=== PATIENT | male | born 1940 | race Caucasian/White ===

== ENCOUNTER 2017-04-26 08:15 | Outpatient (CLI) | payer MEDICARE, SELFPAY ==
[2017-04-26 08:41] VITALS: BMI 27.0
[2017-04-26 08:53] LABS: Microscopic, Urine URINE MICROSCOPIC (MICROSCOPIC)
[2017-04-26 08:56] LABS: Appearance,Urine SL CLOUDY (Clear); Bilirubin,Urine Negative (Negative); Blood, Urine TRACE-I (Negative); Color,Urine YELLOW (Yellow); Glucose,Urine (UA) Negative (Negative); Ketones,Urine Negative (Negative); Leukocyte Esterase,Urine 1+ (Negative); Nitrate,Urine POSITIVE (Negative); Protein,Urine 1+ (Negative); Specific Gravity, Urine <= 1.005 (1.005-1.030); Urobilinogen,Urine 0.2 EU/dl (0.2)
[2017-04-26 08:59] LABS: Basophils % 0.3 % (0.1-2.0); Eosinophils # 0.2 K/mm3 (0.0-0.4); Eosinophils % 3.5 % (0.1-12.0); Hematocrit 38.3 % (42.0-52.0); Hemoglobin 12.3 g/dL (14.1-18.0); Lymphocytes # 1.9 K/mm3 (0.7-4.5); Lymphocytes % 26.9 K/mm3 (10-50); Mean Corpuscular HGB Conc 32.1 g/dL (31.8-35.4); Mean Corpuscular Hemoglobin 29.3 pg (27.0-31.2); Mean Corpuscular Volume 91.3 fl (80-94); Monocytes # 0.4 K/mm3 (0.1-1.0); Monocytes % 6.2 % (1.7-9.3); Neutrophils # 4.4 K/mm3 (1.8-7.8); Neutrophils % 63.1 % (37.0-80.0); PH,Urine >= 9.0 (5.0-8.5); Platelet Count 266 K/mm3 (142-424); Red Blood Count 4.19 M/mm3 (4.60-6.20); Red Cell Distribution Width 16.5 % (11.5-17.5)
[2017-04-26 09:08] LABS: Bacteria,Urine 4+ /lpf; Triple Phosphate Crystal,Urine Trace /lpf; WBC,Urine 50-100 #/hpf (0-3)
[2017-04-26 09:40] LABS: Alanine Aminotransferase 18 U/L (12-78); Albumin Level 3.3 gm/dL (3.4-5.0); Albumin/Globulin Ratio 0.8 (1.1-1.8); Alkaline Phosphatase 96 U/L (46-116); Anion Gap 12.1 mEq/L (5-15); Aspartate Amino Transferase 18 U/L (15-37); Bilirubin,Total 0.6 mg/dL (0.2-1.0); Blood Urea Nitrogen 21 mg/dL (7-18); Calcium 8.7 mg/dL (8.5-10.1); Carbon Dioxide 23 mmol/L (21.0-32.0); Chloride 108 mmol/L (98-107); Creatinine Clearance Estimated 57 mg/ml (0-300); Creatinine,Serum 1.31 mg/dL (0.70-1.30); Estimated Glomerular Filt Rate 53 ml/min (>60); GFR (African American) > 60 ML/MIN (>60); Globulin 4.2 gm/dl (1.3-3.2); Glucose 115 mg/dL (74-106); Potassium 3.1 mmoL/L (3.5-5.1); Sodium 140 mmol/L (136-145); Total Protein,Serum 7.5 gm/dL (6.4-8.2)
== END 2017-04-26 10:30 | disposition home or self-care (01) ==
LOC: INF 13:04
PROVIDERS: Family Provider Family Medicine; PCP Family Medicine; Visit Provider Internal Medicine
DX: C18.9 Malignant neoplasm of colon, unspecified (principal); R82.90 Unspecified abnormal findings in urine
CPT/HCPCS: 80053; 81001; 85025; 87086; 87088; 87186; J1642

== ENCOUNTER → 2017-05-01 12:08 | Outpatient (CLI) | payer MEDICARE, SELFPAY ==
--- NOTE | 2017-05-01 12:21 | CT_ITS ---
CT chest w con HISTORY: Follow-up pulmonary metastatic disease from colon cancer ITS.REASON: COLON CA ORDERING PHYSICIAN: Jason Mccain MD PATIENT AGE: 76 years TECHNIQUE: Axial images obtained following the intravenous administration of 75 mL's of Isovue-370. Sagittal and Coronal reformatted images are also generated and reviewed. COMPARISON: 02/10/2017 FINDINGS: No mediastinal or hilar mass apparent. There are some small pretracheal lymph nodes measuring up to 11 mm unchanged There are centrilobular emphysematous changes with scattered areas of pulmonary scarring. Bilateral pulmonary nodules are once again noted. The nodules are somewhat smaller on today's study when compared to the previous exam. For example, the largest nodule in the right lower lobe was approximately 14 x 9 mm now measuring 10 x 7 mm. The nodules are also somewhat less well-defined. The largest confluent nodule in the left lower lobe was 2.3 x 1.7 cm now 1.5 x 0.9 cm. No new nodules apparent. There are trace bilateral effusions are slightly smaller when compared to the previous exam. IMPRESSION: 1. Overall decrease in size of the multiple bilateral pulmonary nodules indicating improvement in metastatic disease 2. Centrilobular emphysematous changes with scattered pulmonary fibrosis and trace bilateral pleural effusions
--- NOTE | 2017-05-01 12:21 | CT_ITS ---
CT abdomen pelvis w con CLINICAL INDICATION: Follow-up metastatic colon cancer ITS.REASON: COLON CA ORDERING PHYSICIAN: Jason Mccain MD PATIENT AGE: 76 years COMPARISON: 02/10/2017 TECHNIQUE: Axial images obtained with sagittal and coronal reformats. PROCEDURE: Oral Contrast: Redicat IV Contrast: 75 mL's of Isovue-370. FINDINGS: Hypodense mass is present in the left lobe of the liver measuring 3.5 x 3.1 x 3.7 cm previously 4.2 x 3.8 x 4.4 cm consistent with improvement in hepatic metastasis. There is a mass in the inferior aspect of the right lobe of the liver measuring 2 x 2 cm previously 2.5 x 2.5 cm. There are small hepatic cyst. No new hepatic lesions evident. The spleen and right adrenal gland are unremarkable. There is a 13 mm nodule involving the left adrenal gland not significantly changed. There are bilateral renal cysts. The pancreas has an unremarkable appearance. 14 mm nodular density is present in the intra-abdominal wall on superior aspect of the abdominal wall incision. There remains moderate thickening of the abdominal wall inferior to the umbilicus centrally as seen on the previous exam. Right lower quadrant ileal loop again noted. No evidence of hydronephrosis or hydroureter. There is a left lower quadrant colostomy. There is a small loop of transverse colon extending into the ostomy site. No evidence of intestinal structure in. There remains a fluid collection in the lower pelvis in the presacral region in the resected rectosigmoid bed residual soft tissue thickening in the rectovesical region similar to the previous exam. Dilated loop of small bowel is present anterior to this region as previously described not significantly changed no definite bowel obstruction proximal to this region No acute bony anomalies. No destructive bony lesions. IMPRESSION: 1. Slight decrease in size in hepatic masses indicating improvement in metastatic disease of the liver 2. Overall no significant change in the nodular soft tissue density in the abdominal wall both superior and inferior to the umbilical region along the abdominal wall incision. 3. Right lower quadrant ileal loop and left lower quadrant colostomy once again noted. 4. Persistent complex soft tissue density in the pelvis in the presacral region and rectosigmoid bed. Cannot exclude residual neoplasm. Postradiation/postsurgical changes once again noted. The fluid appearing component of this complex density is slightly larger at 3.8 x 2.3 cm previously 2 x 1 cm 5. Persistent dilated small bowel loop in the pelvic region anterior to the complex fluid and soft tissue density
== END ==
PROVIDERS: Family Provider Family Medicine; PCP Family Medicine; Visit Provider Internal Medicine
DX: C18.9 Malignant neoplasm of colon, unspecified (principal)
CPT/HCPCS: 71260; 74177; Q9967

== ENCOUNTER 2017-05-08 08:35 | Outpatient (CLI) | payer MEDICARE, SELFPAY ==
[2017-05-08] VITALS (11 sets, daily range): BP systolic 128–151; BP diastolic 71–78; PULSE 68–81; RESP 20; TEMP 36.6; O2SAT 96–97; BMI 27.1
[2017-05-08 08:48] LABS: Microscopic, Urine URINE MICROSCOPIC (MICROSCOPIC)
[2017-05-08 08:50] LABS: Appearance,Urine Turbid (Clear); Color,Urine Yellow (Yellow)
[2017-05-08 08:51] LABS: Bilirubin,Urine Negative (Negative); Blood, Urine 1+ (Negative); Glucose,Urine (UA) Negative (Negative); Ketones,Urine Negative (Negative); Leukocyte Esterase,Urine 2+ (Negative); Nitrate,Urine Positive (Negative); PH,Urine 8.5 (5.0-8.5); Protein,Urine Trace (Negative); Urobilinogen,Urine 0.2 EU/dl (0.2)
[2017-05-08 08:57] LABS: Bacteria,Urine 4+ /lpf; Squamous Epithelial Cell,Urine Occasional #/hpf (0-5); WBC,Urine 20-50 #/hpf (0-3)
== END 2017-05-08 14:10 | disposition home or self-care (01) ==
LOC: INF 11:59
PROVIDERS: Family Provider Family Medicine; PCP Family Medicine; Visit Provider Internal Medicine
DX: C18.9 Malignant neoplasm of colon, unspecified (principal); Z51.11 Encounter for antineoplastic chemotherapy; R82.90 Unspecified abnormal findings in urine
CPT/HCPCS: 81001; 87086; 87088; 87186; 96375; 96413; 96415; 96417; J9035; J9263; Q0166

== ENCOUNTER 2017-05-24 08:03 | Outpatient (CLI) | payer MEDICARE, SELFPAY ==
[2017-05-24] VITALS (21 sets, daily range): BP systolic 125–148; BP diastolic 67–86; PULSE 59–79; RESP 16–18; TEMP 36.2; O2SAT 97; BMI 27.3
[2017-05-24 08:31] LABS: Microscopic, Urine URINE MICROSCOPIC (MICROSCOPIC)
[2017-05-24 08:34] LABS: Basophils % 0.4 % (0.1-2.0); Eosinophils # 0.2 K/mm3 (0.0-0.4); Eosinophils % 2.7 % (0.1-12.0); Hematocrit 37.4 % (42.0-52.0); Hemoglobin 11.9 g/dL (14.1-18.0); Lymphocytes # 1.7 K/mm3 (0.7-4.5); Lymphocytes % 26.1 K/mm3 (10-50); Mean Corpuscular HGB Conc 31.8 g/dL (31.8-35.4); Mean Corpuscular Volume 91.2 fl (80-94); Monocytes # 0.4 K/mm3 (0.1-1.0); Monocytes % 5.5 % (1.7-9.3); Neutrophils # 4.2 K/mm3 (1.8-7.8); Neutrophils % 65.2 % (37.0-80.0); Platelet Count 247 K/mm3 (142-424); Red Cell Distribution Width 17.7 % (11.5-17.5); White Blood Count 6.4 K/mm3 (4.8-10.8)
[2017-05-24 08:34] LABS: Appearance,Urine CLOUDY (Clear); Bilirubin,Urine Negative (Negative); Blood, Urine 1+ (Negative); Color,Urine YELLOW (Yellow); Glucose,Urine (UA) Negative (Negative); Ketones,Urine Negative (Negative); Leukocyte Esterase,Urine 2+ (Negative); Nitrate,Urine POSITIVE (Negative); PH,Urine 8.5 (5.0-8.5); Protein,Urine 2+ (Negative); Specific Gravity, Urine <= 1.005 (1.005-1.030); Urobilinogen,Urine 0.2 EU/dl (0.2)
[2017-05-24 08:48] LABS: Alanine Aminotransferase 21 U/L (12-78); Albumin Level 3.1 gm/dL (3.4-5.0); Albumin/Globulin Ratio 0.8 (1.1-1.8); Alkaline Phosphatase 85 U/L (46-116); Anion Gap 14.2 mEq/L (5-15); Aspartate Amino Transferase 15 U/L (15-37); Bilirubin,Total 0.7 mg/dL (0.2-1.0); Blood Urea Nitrogen 20 mg/dL (7-18); Calcium 8.5 mg/dL (8.5-10.1); Carbon Dioxide 22 mmol/L (21.0-32.0); Chloride 111 mmol/L (98-107); Creatinine Clearance Estimated 64 mL/min (0-300); Creatinine,Serum 1.15 mg/dL (0.70-1.30); Estimated Glomerular Filt Rate 62 ml/min (>60); GFR (African American) 75 ML/MIN (>60); Glucose 116 mg/dL (74-106); Potassium 3.2 mmoL/L (3.5-5.1); Sodium 144 mmol/L (136-145); Total Protein,Serum 7.1 gm/dL (6.4-8.2)
[2017-05-24 08:51] LABS: Bacteria,Urine 4+ /lpf; Triple Phosphate Crystal,Urine Trace /lpf; WBC,Urine TNTC #/hpf (0-3)
== END 2017-05-24 15:00 | disposition home or self-care (01) ==
LOC: INF 08:07
PROVIDERS: Family Provider Family Medicine; PCP Family Medicine; Visit Provider Internal Medicine
DX: C18.9 Malignant neoplasm of colon, unspecified (principal); Z51.11 Encounter for antineoplastic chemotherapy; R82.90 Unspecified abnormal findings in urine
CPT/HCPCS: 80053; 81001; 85025; 87086; 87088; 87186; 96413; 96415; 96417; J9035; J9263; Q0166

== ENCOUNTER 2017-06-07 10:56 | Outpatient (CLI) | payer MEDICARE, SELFPAY ==
[2017-06-07 11:01] VITALS: BMI 27.1
[2017-06-07 11:34] LABS: Microscopic, Urine URINE MICROSCOPIC (MICROSCOPIC)
[2017-06-07 11:39] LABS: Appearance,Urine CLOUDY (Clear); Basophils % 0.6 % (0.1-2.0); Bilirubin,Urine Negative (Negative); Blood, Urine TRACE-I (Negative); Color,Urine YELLOW (Yellow); Eosinophils # 0.2 K/mm3 (0.0-0.4); Eosinophils % 2.9 % (0.1-12.0); Glucose,Urine (UA) Negative (Negative); Hematocrit 37.6 % (42.0-52.0); Ketones,Urine Negative (Negative); Leukocyte Esterase,Urine 2+ (Negative); Lymphocytes # 1.6 K/mm3 (0.7-4.5); Lymphocytes % 25.1 K/mm3 (10-50); Mean Corpuscular Hemoglobin 29.8 pg (27.0-31.2); Mean Corpuscular Volume 93.1 fl (80-94); Mean Platelet Volume 8.2 fl (7.4-10.4); Monocytes # 0.5 K/mm3 (0.1-1.0); Monocytes % 8.2 % (1.7-9.3); Neutrophils # 4.1 K/mm3 (1.8-7.8); Neutrophils % 63.2 % (37.0-80.0); Nitrate,Urine POSITIVE (Negative); Platelet Count 262 K/mm3 (142-424); Protein,Urine 2+ (Negative); Red Blood Count 4.03 M/mm3 (4.60-6.20); Red Cell Distribution Width 17.3 % (11.5-17.5); Specific Gravity, Urine <= 1.005 (1.005-1.030); Urobilinogen,Urine 0.2 EU/dl (0.2); White Blood Count 6.5 K/mm3 (4.8-10.8)
[2017-06-07 11:48] LABS: Alanine Aminotransferase 21 U/L (12-78); Albumin Level 3.1 gm/dL (3.4-5.0); Albumin/Globulin Ratio 0.7 (1.1-1.8); Alkaline Phosphatase 100 U/L (46-116); Anion Gap 12.6 mEq/L (5-15); Aspartate Amino Transferase 11 U/L (15-37); Bilirubin,Total 0.4 mg/dL (0.2-1.0); Blood Urea Nitrogen 21 mg/dL (7-18); Calcium 8.7 mg/dL (8.5-10.1); Carbon Dioxide 25 mmol/L (21.0-32.0); Chloride 107 mmol/L (98-107); Creatinine Clearance Estimated 60 mL/min (0-300); Creatinine,Serum 1.28 mg/dL (0.70-1.30); Estimated Glomerular Filt Rate 55 ml/min (>60); GFR (African American) 66 ML/MIN (>60); Globulin 4.6 gm/dl (1.3-3.2); Glucose 125 mg/dL (74-106); Potassium 3.6 mmoL/L (3.5-5.1); Sodium 141 mmol/L (136-145); Total Protein,Serum 7.7 gm/dL (6.4-8.2)
[2017-06-07 11:55] LABS: PH,Urine >= 9.0 (5.0-8.5)
[2017-06-07 12:39] LABS: Amorphous Sediment,Urine Trace /lpf; Bacteria,Urine 3+ /lpf; Triple Phosphate Crystal,Urine 1+ /lpf
== END 2017-06-07 11:25 | disposition home or self-care (01) ==
LOC: INF 10:58
PROVIDERS: Visit Provider Internal Medicine
DX: C18.9 Malignant neoplasm of colon, unspecified (principal); R82.90 Unspecified abnormal findings in urine
CPT/HCPCS: 80053; 81001; 85025; 87086; 87088; 87186; J1642

== ENCOUNTER 2017-06-09 08:30 | Outpatient (CLI) | payer MEDICARE, SELFPAY ==
[2017-06-09] VITALS (9 sets, daily range): BP systolic 122–144; BP diastolic 67–78; PULSE 66–80; RESP 18–20; TEMP 36.4–36.9; O2SAT 96–98
--- NOTE | 2017-06-09 17:22 | PC.NURSE ---
WAS NOT ABLE TO COMPLETE THE DISCHARGE INSTRUCTIONS PAGE; ATTEMPTED X3 TO CHART THE PATIENT WAS DISCHARGED AT 1310 ; AMBULATED WITH IN THE CAR; NO SCRIPTS GIVEN; PT SENT HOME
== END 2017-06-09 13:10 | disposition home or self-care (01) ==
LOC: INF 08:52
PROVIDERS: Family Provider Family Medicine; Visit Provider Internal Medicine
DX: C18.9 Malignant neoplasm of colon, unspecified (principal); Z51.11 Encounter for antineoplastic chemotherapy
CPT/HCPCS: 96413; 96415; 96417; J9035; J9263; Q0166

== ENCOUNTER → 2017-06-16 09:54 | Outpatient (CLI) | payer MEDICARE, SELFPAY ==
[2017-06-16 09:59] LABS: Microscopic, Urine URINE MICROSCOPIC (MICROSCOPIC)
[2017-06-16 10:08] LABS: Appearance,Urine SL CLOUDY (Clear); Bilirubin,Urine Negative (Negative); Blood, Urine TRACE-I (Negative); Color,Urine YELLOW (Yellow); Glucose,Urine (UA) Negative (Negative); Ketones,Urine Negative (Negative); Leukocyte Esterase,Urine 1+ (Negative); Nitrate,Urine POSITIVE (Negative); PH,Urine 8.5 (5.0-8.5); Protein,Urine 1+ (Negative); Urobilinogen,Urine 0.2 EU/dl (0.2)
[2017-06-16 10:35] LABS: Amorphous Sediment,Urine 1+ /lpf; Bacteria,Urine 4+ /lpf; WBC,Urine 20-50 #/hpf (0-3)
[2017-06-16 10:36] LABS: RBC,Urine Occasional #/hpf (0-3); Triple Phosphate Crystal,Urine 1+ /lpf
== END ==
PROVIDERS: Visit Provider Internal Medicine
DX: C18.9 Malignant neoplasm of colon, unspecified (principal); R82.90 Unspecified abnormal findings in urine
CPT/HCPCS: 81001; 87086; 87088; 87186

== ENCOUNTER 2017-06-22 10:30 | Outpatient (CLI) | payer MEDICARE, SELFPAY ==
[2017-06-22 10:30] VITALS: BP 122/66; PULSE 68; RESP 20; TEMP 36.9; O2SAT 96
[2017-06-22 10:35] VITALS: BMI 27.1
[2017-06-22 10:47] LABS: Microscopic, Urine URINE MICROSCOPIC (MICROSCOPIC)
[2017-06-22 10:51] LABS: Basophils % 0.3 % (0.1-2.0); Eosinophils # 0.1 K/mm3 (0.0-0.4); Eosinophils % 0.9 % (0.1-12.0); Hematocrit 37.1 % (42.0-52.0); Hemoglobin 12.1 g/dL (14.1-18.0); Lymphocytes # 1.7 K/mm3 (0.7-4.5); Lymphocytes % 17.6 K/mm3 (10-50); Mean Corpuscular HGB Conc 32.5 g/dL (31.8-35.4); Mean Corpuscular Hemoglobin 29.6 pg (27.0-31.2); Mean Corpuscular Volume 91.1 fl (80-94); Mean Platelet Volume 7.9 fl (7.4-10.4); Monocytes # 0.7 K/mm3 (0.1-1.0); Monocytes % 7.2 % (1.7-9.3); Neutrophils # 7.3 K/mm3 (1.8-7.8); Neutrophils % 74.2 % (37.0-80.0); Platelet Count 246 K/mm3 (142-424); Red Blood Count 4.07 M/mm3 (4.60-6.20); Red Cell Distribution Width 17.6 % (11.5-17.5); White Blood Count 9.9 K/mm3 (4.8-10.8)
[2017-06-22 11:15] LABS: Appearance,Urine CLOUDY (Clear); Bilirubin,Urine Negative (Negative); Blood, Urine TRACE-I (Negative); Color,Urine YELLOW (Yellow); Glucose,Urine (UA) Negative (Negative); Ketones,Urine Negative (Negative); Leukocyte Esterase,Urine 1+ (Negative); Nitrate,Urine POSITIVE (Negative); Protein,Urine 2+ (Negative); Specific Gravity, Urine <= 1.005 (1.005-1.030); Urobilinogen,Urine 0.2 EU/dl (0.2)
[2017-06-22 11:18] LABS: Alanine Aminotransferase 22 U/L (12-78); Albumin Level 3.1 gm/dL (3.4-5.0); Albumin/Globulin Ratio 0.7 (1.1-1.8); Alkaline Phosphatase 94 U/L (46-116); Anion Gap 14.2 mEq/L (5-15); Aspartate Amino Transferase 15 U/L (15-37); Bilirubin,Total 0.7 mg/dL (0.2-1.0); Blood Urea Nitrogen 23 mg/dL (7-18); Calcium 8.7 mg/dL (8.5-10.1); Carbon Dioxide 23 mmol/L (21.0-32.0); Chloride 105 mmol/L (98-107); Creatinine Clearance Estimated 66 mL/min (0-300); Creatinine,Serum 1.16 mg/dL (0.70-1.30); Estimated Glomerular Filt Rate 61 ml/min (>60); GFR (African American) 74 ML/MIN (>60); Globulin 4.3 gm/dl (1.3-3.2); Glucose 99 mg/dL (74-106); Potassium 3.2 mmoL/L (3.5-5.1); Sodium 139 mmol/L (136-145); Total Protein,Serum 7.4 gm/dL (6.4-8.2)
[2017-06-22 11:30] VITALS: BP 122/66; PULSE 68; RESP 20; TEMP 36.9; O2SAT 96
[2017-06-22 11:32] LABS: PH,Urine >= 9.0 (5.0-8.5)
[2017-06-22 11:44] LABS: Amorphous Sediment,Urine 1+ /lpf; Bacteria,Urine 3+ /lpf; Triple Phosphate Crystal,Urine 3+ /lpf; WBC,Urine 20-50 #/hpf (0-3)
== END 2017-06-22 11:30 | disposition home or self-care (01) ==
LOC: INF 06-23 08:47
PROVIDERS: Family Provider Family Medicine; Visit Provider Internal Medicine
DX: C18.9 Malignant neoplasm of colon, unspecified (principal); R82.90 Unspecified abnormal findings in urine
CPT/HCPCS: 80053; 81001; 85025; 87086; J1642

== ENCOUNTER 2017-06-23 08:40 | Outpatient (CLI) | payer MEDICARE, SELFPAY ==
[2017-06-23] VITALS (19 sets, daily range): BP systolic 118–135; BP diastolic 59–92; PULSE 61–92; RESP 16–18; TEMP 36.4
--- NOTE | 2017-06-23 10:51 | PC.NURSE ---
0955 - PREMEDICATED WITH KYTRIL 2MG PO AND DECADRON 8MG PO PRIOR TO OXALIPLATIN INFUSION. ALSO GAVE KCL 40MEQ PO AT THIS TIME DUE TO K+ 3.2.
--- NOTE | 2017-06-23 14:57 | PC.NURSE ---
TOTAL INCLUDES AVASTIN, OXALIPLATIN, NS, AND PRE AND POST FLUIDS
--- NOTE | 2017-06-23 15:09 | PC.NURSE ---
1300 - ADMINISTERED 8MG PO AT THIS TIME.
== END 2017-06-23 14:30 | disposition home or self-care (01) ==
LOC: INF 08:54
PROVIDERS: Family Provider Family Medicine; Visit Provider Internal Medicine
DX: C18.9 Malignant neoplasm of colon, unspecified (principal)
CPT/HCPCS: 96413; 96415; 96417; J9035; J9263; Q0166

== ENCOUNTER 2017-07-06 09:25 | Outpatient (CLI) | payer MEDICARE, SELFPAY ==
[2017-07-06 09:33] VITALS: BMI 25.9
[2017-07-06 09:52] LABS: Microscopic, Urine URINE MICROSCOPIC (MICROSCOPIC)
[2017-07-06 09:55] LABS: Appearance,Urine TURBID (Clear); Bilirubin,Urine Negative (Negative); Blood, Urine 2+ (Negative); Color,Urine YELLOW (Yellow); Glucose,Urine (UA) Negative (Negative); Ketones,Urine Negative (Negative); Leukocyte Esterase,Urine 2+ (Negative); Nitrate,Urine POSITIVE (Negative); Protein,Urine 1+ (Negative); Urobilinogen,Urine 0.2 EU/dl (0.2)
[2017-07-06 09:56] LABS: Basophils % 0.5 % (0.1-2.0); Eosinophils # 0.2 K/mm3 (0.0-0.4); Eosinophils % 2.7 % (0.1-12.0); Hematocrit 40.8 % (42.0-52.0); Hemoglobin 13.2 g/dL (14.1-18.0); Lymphocytes # 1.9 K/mm3 (0.7-4.5); Lymphocytes % 24.5 K/mm3 (10-50); Mean Corpuscular HGB Conc 32.4 g/dL (31.8-35.4); Mean Corpuscular Hemoglobin 30.7 pg (27.0-31.2); Mean Corpuscular Volume 94.8 fl (80-94); Mean Platelet Volume 7.9 fl (7.4-10.4); Monocytes # 0.8 K/mm3 (0.1-1.0); Monocytes % 9.9 % (1.7-9.3); Neutrophils # 4.7 K/mm3 (1.8-7.8); Neutrophils % 62.4 % (37.0-80.0); Platelet Count 280 K/mm3 (142-424); Red Cell Distribution Width 18.2 % (11.5-17.5); White Blood Count 7.6 K/mm3 (4.8-10.8)
[2017-07-06 10:09] LABS: Alanine Aminotransferase 22 U/L (12-78); Albumin Level 3.1 gm/dL (3.4-5.0); Albumin/Globulin Ratio 0.7 (1.1-1.8); Alkaline Phosphatase 110 U/L (46-116); Anion Gap 13.5 mEq/L (5-15); Aspartate Amino Transferase 11 U/L (15-37); Bilirubin,Total 0.8 mg/dL (0.2-1.0); Blood Urea Nitrogen 22 mg/dL (7-18); Calcium 8.7 mg/dL (8.5-10.1); Carbon Dioxide 23 mmol/L (21.0-32.0); Chloride 106 mmol/L (98-107); Creatinine Clearance Estimated 64 mL/min (0-300); Creatinine,Serum 1.14 mg/dL (0.70-1.30); Estimated Glomerular Filt Rate 62 ml/min (>60); GFR (African American) 76 ML/MIN (>60); Globulin 4.5 gm/dl (1.3-3.2); Glucose 97 mg/dL (74-106); Potassium 3.5 mmoL/L (3.5-5.1); Sodium 139 mmol/L (136-145); Total Protein,Serum 7.6 gm/dL (6.4-8.2)
[2017-07-06 10:12] LABS: Bacteria,Urine 3+ /lpf
== END 2017-07-06 09:45 | disposition home or self-care (01) ==
LOC: INF 09:40
PROVIDERS: Family Provider Family Medicine; Visit Provider Internal Medicine
DX: C18.9 Malignant neoplasm of colon, unspecified (principal); Z45.2 Encounter for adjustment and management of vascular access device; R82.90 Unspecified abnormal findings in urine
CPT/HCPCS: 80053; 81001; 85025; 87086; 87088; 87186; J1642

== ENCOUNTER 2017-07-07 08:30 | Outpatient (CLI) | payer MEDICARE, SELFPAY ==
[2017-07-07] VITALS (18 sets, daily range): BP systolic 111–138; BP diastolic 66–80; PULSE 62–89; RESP 16–18; TEMP 35.8–36.3
--- NOTE | 2017-07-07 10:16 | PC.NURSE ---
0930 - PREMEDICATED WITH KYTRIL 2MG, DECADRON 8MG, AND K+ 40MEQ PO AT THIS TIME.
--- NOTE | 2017-07-07 13:53 | PC.NURSE ---
TOTAL VOLUME INCLUDES NS, PRE AND POST FLUIDS, AVASTIN, AND OXALIPLATIN.
== END 2017-07-07 13:45 | disposition home or self-care (01) ==
LOC: INF 08:42
PROVIDERS: Family Provider Family Medicine; Visit Provider Internal Medicine
DX: Z51.11 Encounter for antineoplastic chemotherapy (principal); C18.9 Malignant neoplasm of colon, unspecified
CPT/HCPCS: 96413; 96415; 96417; J9035; J9263; Q0166

== ENCOUNTER 2017-07-17 10:53 | Outpatient (CLI) | payer MEDICARE, SELFPAY ==
[2017-07-17] VITALS (7 sets, daily range): BP systolic 112–131; BP diastolic 60–92; PULSE 77–96; RESP 18–20; TEMP 36.6–36.7; O2SAT 95–98; BMI 23.6
[2017-07-17 10:55] LABS: Basophils % 0.4 % (0.1-2.0); Eosinophils # 0.1 K/mm3 (0.0-0.4); Eosinophils % 1.1 % (0.1-12.0); Hematocrit 45.5 % (42.0-52.0); Hemoglobin 15.2 g/dL (14.1-18.0); Lymphocytes # 2.1 K/mm3 (0.7-4.5); Lymphocytes % 18.5 K/mm3 (10-50); Mean Corpuscular HGB Conc 33.5 g/dL (31.8-35.4); Mean Corpuscular Hemoglobin 31.4 pg (27.0-31.2); Mean Corpuscular Volume 93.7 fl (80-94); Mean Platelet Volume 8.7 fl (7.4-10.4); Monocytes # 0.8 K/mm3 (0.1-1.0); Monocytes % 7.5 % (1.7-9.3); Neutrophils # 8.2 K/mm3 (1.8-7.8); Neutrophils % 72.6 % (37.0-80.0); Platelet Count 345 K/mm3 (142-424); Red Blood Count 4.85 M/mm3 (4.60-6.20); Red Cell Distribution Width 17.2 % (11.5-17.5); White Blood Count 11.3 K/mm3 (4.8-10.8)
[2017-07-17 11:00] LABS: Blood Urea Nitrogen 42 mg/dL (7-18); Creatinine Clearance Estimated 28 mL/min (0-300); Creatinine,Serum 2.35 mg/dL (0.70-1.30); Estimated Glomerular Filt Rate 27 ml/min (>60); GFR (African American) 33 ML/MIN (>60)
[2017-07-17 11:02] LABS: Alanine Aminotransferase 29 U/L (12-78); Albumin Level 3.5 gm/dL (3.4-5.0); Albumin/Globulin Ratio 0.6 (1.1-1.8); Alkaline Phosphatase 140 U/L (46-116); Anion Gap 17.9 mEq/L (5-15); Aspartate Amino Transferase 20 U/L (15-37); Calcium 9.8 mg/dL (8.5-10.1); Carbon Dioxide 25 mmol/L (21.0-32.0); Chloride 96 mmol/L (98-107); Globulin 5.6 gm/dl (1.3-3.2); Glucose 100 mg/dL (74-106); Potassium 3.9 mmoL/L (3.5-5.1); Sodium 135 mmol/L (136-145); Total Protein,Serum 9.1 gm/dL (6.4-8.2)
--- NOTE | 2017-07-17 11:02 | CT_ITS ---
CT chest wo con HISTORY: Follow-up metastatic rectal cancer ITS.REASON: RECTAL CANCER ORDERING PHYSICIAN: Jason Mccain MD PATIENT AGE: 77 years Technique: Axial images obtained. Sagittal and coronal reformatted images are also generated and reviewed. All CT scans at the facility use one or more dose reduction, viz: automated exposure control; ma/kV adjustment per patient size (including targeted exams where dose is matched to indication; i.e. head); or iterative reconstruction technique. CONTRAST: 75ml Isovue 370 I.V. COMPARISON: 05/01/2017 FINDINGS: Mediport catheter remains in place from a left subclavian approach. There are small nodes in the mediastinum which appear slightly smaller. A precarinal lymph node measures 8 mm previously measuring 11 mm. Centrilobular emphysematous changes are once again noted there are multiple scattered pulmonary nodular opacities once again noted. Some of the nodules appear somewhat less bulky than when compared to the previous exam. No new nodules are evident. No effusions or infiltrates. No destructive bony process evident. IMPRESSION: 1. Multiple small bilateral pulmonary nodules once again noted and appears somewhat less apparent compared to the previous exam suggesting minor improvement in metastatic disease. 2. Small mediastinal lymph nodes are present and are slightly smaller as well
--- NOTE | 2017-07-17 11:02 | CT_ITS ---
CT abdomen pelvis wo con CLINICAL INDICATION: Metastatic rectal cancer ITS.REASON: RECTAL CANCER ORDERING PHYSICIAN: Jason Mccain MD PATIENT AGE: 77 years COMPARISON: 05/01/2017 TECHNIQUE: Axial images obtained with sagittal and coronal reformats. All CT scans at the facility use one or more dose reduction, viz: automated exposure control; ma/kV adjustment per patient size (including targeted exams where dose is matched to indication; i.e. head); or iterative reconstruction technique. PROCEDURE: Oral Contrast: Redicat IV Contrast: None . FINDINGS: Study is performed without contrast. Multiple liver lesions are present as before including a lesion within the upper aspect of the right hepatic lobe at 2 cm and one in the left hepatic lobe lateral segment at 3.3 cm. These are not significantly changed. Small stable 5 mm isodensity is present in the left hepatic lobe. A periportal isodense lesion also noted not significant change. This measures approximate 2.8 cm cephalad to caudad and 1.4 cm transverse. It is somewhat difficult to compare the lesions with this study performed without contrast. There is a nonobstructing right renal calculus at 5 mm and a 1.5 similar cyst along the lower pole the right kidney. Patient has a right ileal loop. No evidence of hydronephrosis. There is a left lower quadrant colostomy. Previously there was a collection of contrast noted in the lower pelvic region which was felt to be related to dilated small bowel. This now has more of a cavity appearance. There are surgical clips in this region. As appears contiguous with a collection of gas in the presacral region also containing some contrast. The findings are consistent with fistula formation.. The cavity in the pelvic region may be related to an area of necrosis from the radiation along with postsurgical change. Cannot exclude the possibility of an abscess. Previously a fluid collection noted in the presacral region now contains a small amount contrast. No acute bony anomalies are evident. IMPRESSION: 1. Overall no significant change in multiple liver lesions consistent with metastatic disease. 2. Thick-walled cavity within the presacral region and central pelvis now containing a small amount of contrast adjacent to a dilated loop of small bowel consistent with fistula formation. The thick-walled collection could be related to necrotic neoplasm, abscess, or postradiation and postsurgical changes
[2017-07-17 13:51] LABS: Alanine Aminotransferase 25 U/L (12-78); Albumin Level 2.9 gm/dL (3.4-5.0); Albumin/Globulin Ratio 0.6 (1.1-1.8); Alkaline Phosphatase 117 U/L (46-116); Anion Gap 16.1 mEq/L (5-15); Aspartate Amino Transferase 19 U/L (15-37); Bilirubin,Total 0.8 mg/dL (0.2-1.0); Blood Urea Nitrogen 39 mg/dL (7-18); Carbon Dioxide 23 mmol/L (21.0-32.0); Chloride 100 mmol/L (98-107); Creatinine Clearance Estimated 36 mL/min (0-300); Creatinine,Serum 1.86 mg/dL (0.70-1.30); Estimated Glomerular Filt Rate 35 ml/min (>60); GFR (African American) 43 ML/MIN (>60); Globulin 4.7 gm/dl (1.3-3.2); Glucose 94 mg/dL (74-106); Potassium 4.1 mmoL/L (3.5-5.1); Sodium 135 mmol/L (136-145); Total Protein,Serum 7.6 gm/dL (6.4-8.2)
[2017-07-17 15:21] LABS: Alanine Aminotransferase 23 U/L (12-78); Albumin Level 2.7 gm/dL (3.4-5.0); Albumin/Globulin Ratio 0.6 (1.1-1.8); Alkaline Phosphatase 110 U/L (46-116); Aspartate Amino Transferase 20 U/L (15-37); Bilirubin,Total 0.8 mg/dL (0.2-1.0); Blood Urea Nitrogen 38 mg/dL (7-18); Calcium 8.2 mg/dL (8.5-10.1); Carbon Dioxide 24 mmol/L (21.0-32.0); Chloride 103 mmol/L (98-107); Creatinine Clearance Estimated 39 mL/min (0-300); Creatinine,Serum 1.71 mg/dL (0.70-1.30); Estimated Glomerular Filt Rate 39 ml/min (>60); GFR (African American) 47 ML/MIN (>60); Globulin 4.4 gm/dl (1.3-3.2); Glucose 94 mg/dL (74-106); Sodium 135 mmol/L (136-145); Total Protein,Serum 7.1 gm/dL (6.4-8.2)
[2017-07-17 16:36] LABS: Calcium 8.7 mg/dL (8.5-10.1)
== END 2017-07-17 15:15 | disposition home or self-care (01) ==
LOC: RAD 10:53
PROVIDERS: Family Provider Family Medicine; PCP Family Medicine; Visit Provider Internal Medicine
DX: C18.9 Malignant neoplasm of colon, unspecified (principal); Z03.89 Encounter for observation for other suspected diseases and conditions ruled out
CPT/HCPCS: 71250; 74176; 80053; 85025; 96360; 96361; J1642

== ENCOUNTER 2017-07-18 10:00 | Outpatient (CLI) | payer MEDICARE, SELFPAY ==
[2017-07-18 10:00] VITALS: BP 122/70; PULSE 66; RESP 20; TEMP 36.6; O2SAT 96
[2017-07-18 10:30] VITALS: BP 122/70; PULSE 68; RESP 20; TEMP 36.6; O2SAT 97
[2017-07-18 11:00] VITALS: BP 118/74; PULSE 78; RESP 20; TEMP 37.1; O2SAT 98
[2017-07-18 11:29] VITALS: BMI 23.6
[2017-07-18 11:50] LABS: Basophils % 0.5 % (0.1-2.0); Eosinophils # 0.2 K/mm3 (0.0-0.4); Eosinophils % 1.8 % (0.1-12.0); Hematocrit 37.1 % (42.0-52.0); Hemoglobin 12.1 g/dL (14.1-18.0); Lymphocytes # 1.4 K/mm3 (0.7-4.5); Lymphocytes % 15.7 K/mm3 (10-50); Mean Corpuscular HGB Conc 32.5 g/dL (31.8-35.4); Mean Corpuscular Hemoglobin 30.2 pg (27.0-31.2); Mean Corpuscular Volume 92.8 fl (80-94); Mean Platelet Volume 8.4 fl (7.4-10.4); Monocytes # 0.8 K/mm3 (0.1-1.0); Monocytes % 9.6 % (1.7-9.3); Neutrophils # 6.2 K/mm3 (1.8-7.8); Neutrophils % 72.3 % (37.0-80.0); Platelet Count 253 K/mm3 (142-424); Red Blood Count 3.99 M/mm3 (4.60-6.20); White Blood Count 8.6 K/mm3 (4.8-10.8)
[2017-07-18 12:04] LABS: Alanine Aminotransferase 22 U/L (12-78); Albumin Level 2.7 gm/dL (3.4-5.0); Albumin/Globulin Ratio 0.6 (1.1-1.8); Alkaline Phosphatase 103 U/L (46-116); Aspartate Amino Transferase 21 U/L (15-37); Bilirubin,Total 0.6 mg/dL (0.2-1.0); Blood Urea Nitrogen 39 mg/dL (7-18); Calcium 8.6 mg/dL (8.5-10.1); Carbon Dioxide 26 mmol/L (21.0-32.0); Chloride 103 mmol/L (98-107); Creatinine Clearance Estimated 42 mL/min (0-300); Creatinine,Serum 1.57 mg/dL (0.70-1.30); Estimated Glomerular Filt Rate 43 ml/min (>60); GFR (African American) 52 ML/MIN (>60); Globulin 4.3 gm/dl (1.3-3.2); Glucose 88 mg/dL (74-106); Sodium 137 mmol/L (136-145)
== END 2017-07-18 11:15 | disposition home or self-care (01) ==
LOC: INF 10:42
PROVIDERS: Family Provider Family Medicine; PCP Family Medicine; Visit Provider Internal Medicine
DX: Z51.11 Encounter for antineoplastic chemotherapy (principal); C18.9 Malignant neoplasm of colon, unspecified
CPT/HCPCS: 80053; 85025; 96360; J1642

== ENCOUNTER 2017-07-27 09:20 | Outpatient (CLI) | payer MEDICARE, SELFPAY ==
[2017-07-27 09:17] VITALS: BMI 25.1
[2017-07-27 09:51] LABS: Basophils % 0.5 % (0.1-2.0); Eosinophils # 0.2 K/mm3 (0.0-0.4); Eosinophils % 2.8 % (0.1-12.0); Hematocrit 36.3 % (42.0-52.0); Hemoglobin 11.2 g/dL (14.1-18.0); Lymphocytes # 1.2 K/mm3 (0.7-4.5); Lymphocytes % 23.3 K/mm3 (10-50); Mean Corpuscular HGB Conc 30.8 g/dL (31.8-35.4); Mean Corpuscular Hemoglobin 30.4 pg (27.0-31.2); Mean Corpuscular Volume 98.7 fl (80-94); Mean Platelet Volume 8.1 fl (7.4-10.4); Monocytes # 0.4 K/mm3 (0.1-1.0); Monocytes % 7.1 % (1.7-9.3); Neutrophils # 3.5 K/mm3 (1.8-7.8); Neutrophils % 66.3 % (37.0-80.0); Platelet Count 293 K/mm3 (142-424); Red Blood Count 3.67 M/mm3 (4.60-6.20); Red Cell Distribution Width 16.6 % (11.5-17.5); White Blood Count 5.3 K/mm3 (4.8-10.8)
[2017-07-27 10:03] LABS: Alanine Aminotransferase 21 U/L (12-78); Albumin Level 2.4 gm/dL (3.4-5.0); Albumin/Globulin Ratio 0.5 (1.1-1.8); Alkaline Phosphatase 94 U/L (46-116); Anion Gap 12.9 mEq/L (5-15); Aspartate Amino Transferase 18 U/L (15-37); Bilirubin,Total 0.4 mg/dL (0.2-1.0); Blood Urea Nitrogen 19 mg/dL (7-18); Calcium 8.7 mg/dL (8.5-10.1); Carbon Dioxide 25 mmol/L (21.0-32.0); Chloride 105 mmol/L (98-107); Creatinine Clearance Estimated 51 mL/min (0-300); Creatinine,Serum 1.38 mg/dL (0.70-1.30); Estimated Glomerular Filt Rate 50 ml/min (>60); GFR (African American) 61 ML/MIN (>60); Globulin 4.4 gm/dl (1.3-3.2); Glucose 238 mg/dL (74-106); Potassium 3.9 mmoL/L (3.5-5.1); Sodium 139 mmol/L (136-145); Total Protein,Serum 6.8 gm/dL (6.4-8.2)
[2017-07-28 17:52] LABS: Prealbumin 12 mg/dL (9-32)
== END 2017-07-27 09:45 | disposition home or self-care (01) ==
LOC: INF 09:38
PROVIDERS: Family Provider Family Medicine; PCP Family Medicine; Visit Provider Surgery
DX: Z45.2 Encounter for adjustment and management of vascular access device (principal); C18.9 Malignant neoplasm of colon, unspecified
CPT/HCPCS: 80053; 84134; 85025; J1642

== ENCOUNTER 2017-08-04 08:50 | Outpatient (CLI) | payer MEDICARE, SELFPAY ==
[2017-08-04 08:10] VITALS: BP 122/78; PULSE 66; RESP 20; TEMP 36.4; O2SAT 96
[2017-08-04 08:30] VITALS: BP 122/78; PULSE 66; RESP 20; TEMP 36.4; O2SAT 96
[2017-08-04 08:50] VITALS: BMI 25.1
[2017-08-04 09:33] LABS: Alanine Aminotransferase 18 U/L (12-78); Albumin/Globulin Ratio 0.6 (1.1-1.8); Alkaline Phosphatase 116 U/L (46-116); Anion Gap 13.1 mEq/L (5-15); Aspartate Amino Transferase 16 U/L (15-37); Bilirubin,Total 0.5 mg/dL (0.2-1.0); Blood Urea Nitrogen 41 mg/dL (7-18); Calcium 9.6 mg/dL (8.5-10.1); Carbon Dioxide 25 mmol/L (21.0-32.0); Chloride 104 mmol/L (98-107); Creatinine Clearance Estimated 52 mL/min (0-300); Creatinine,Serum 1.35 mg/dL (0.70-1.30); Estimated Glomerular Filt Rate 51 ml/min (>60); GFR (African American) 62 ML/MIN (>60); Globulin 5.2 gm/dl (1.3-3.2); Glucose 130 mg/dL (74-106); Potassium 4.1 mmoL/L (3.5-5.1); Sodium 138 mmol/L (136-145); Total Protein,Serum 8.2 gm/dL (6.4-8.2)
[2017-08-05 19:06] LABS: Prealbumin 19 mg/dL (9-32)
== END 2017-08-04 09:00 | disposition home or self-care (01) ==
LOC: INF 08:55
PROVIDERS: Family Provider Family Medicine; PCP Family Medicine; Visit Provider Surgery
DX: Z45.2 Encounter for adjustment and management of vascular access device (principal); C18.9 Malignant neoplasm of colon, unspecified
CPT/HCPCS: 80053; 84134; J1642

== ENCOUNTER 2017-09-08 08:40 | Outpatient (CLI) | payer MEDICARE, SELFPAY ==
[2017-09-08 08:58] VITALS: BMI 23.6
[2017-09-08 12:02] LABS: Basophils % 0.3 % (0.1-2.0); Eosinophils # 0.3 K/mm3 (0.0-0.4); Eosinophils % 2.9 % (0.1-12.0); Hematocrit 31.8 % (42.0-52.0); Hemoglobin 9.9 g/dL (14.1-18.0); Lymphocytes # 1.7 K/mm3 (0.7-4.5); Lymphocytes % 17.7 K/mm3 (10-50); Mean Corpuscular HGB Conc 31.3 g/dL (31.8-35.4); Mean Corpuscular Hemoglobin 28.2 pg (27.0-31.2); Mean Platelet Volume 7.8 fl (7.4-10.4); Monocytes # 0.7 K/mm3 (0.1-1.0); Monocytes % 7.3 % (1.7-9.3); Neutrophils # 6.7 K/mm3 (1.8-7.8); Neutrophils % 71.8 % (37.0-80.0); Platelet Count 416 K/mm3 (142-424); Red Blood Count 3.53 M/mm3 (4.60-6.20); Red Cell Distribution Width 15.3 % (11.5-17.5); White Blood Count 9.4 K/mm3 (4.8-10.8)
[2017-09-08 12:14] LABS: Alanine Aminotransferase 15 U/L (12-78); Albumin Level 2.3 gm/dL (3.4-5.0); Albumin/Globulin Ratio 0.5 (1.1-1.8); Alkaline Phosphatase 156 U/L (46-116); Anion Gap 15.3 mEq/L (5-15); Aspartate Amino Transferase 14 U/L (15-37); Bilirubin,Total 0.4 mg/dL (0.2-1.0); Blood Urea Nitrogen 16 mg/dL (7-18); Calcium 8.5 mg/dL (8.5-10.1); Carbon Dioxide 21 mmol/L (21.0-32.0); Chloride 106 mmol/L (98-107); Creatinine Clearance Estimated 59 mL/min (0-300); Creatinine,Serum 1.13 mg/dL (0.70-1.30); Estimated Glomerular Filt Rate 63 ml/min (>60); GFR (African American) 76 ML/MIN (>60); Globulin 4.8 gm/dl (1.3-3.2); Glucose 110 mg/dL (74-106); Potassium 3.3 mmoL/L (3.5-5.1); Sodium 139 mmol/L (136-145); Total Protein,Serum 7.1 gm/dL (6.4-8.2)
== END 2017-09-08 11:50 | disposition home or self-care (01) ==
LOC: INF 08:54
PROVIDERS: Family Provider Family Medicine; PCP Family Medicine; Visit Provider Internal Medicine
DX: C18.9 Malignant neoplasm of colon, unspecified (principal); Z45.2 Encounter for adjustment and management of vascular access device
CPT/HCPCS: 80053; 85025; J1642

== ENCOUNTER 2017-09-21 10:22 | Outpatient (CLI) | payer MEDICARE, SELFPAY ==
[2017-09-21 10:17] VITALS: BMI 23.3
--- NOTE | 2017-09-21 10:36 | CT_ITS ---
CT chest w con HISTORY: Follow-up: Cancer ITS.REASON: COLON CA ORDERING PHYSICIAN: Jason Mccain MD PATIENT AGE: 77 years COMPARISON: 02/10/2017 TECHNIQUE: Axial images obtained following the administration of 75 mL of Isovue 370 . Sagittal, and coronal reformatted images are also generated and reviewed. All CT scans at the facility use one or more dose reduction, viz: automated exposure control; ma/kV adjustment per patient size (including targeted exams where dose is matched to indication; i.e. head); or iterative reconstruction technique. FINDINGS: There is a small pretracheal lymph node measuring 13 x 10 mm previously measuring 11 x 10 mm. Other smaller nodes are present in the mediastinum and mann. Normal heart size. Minimal pericardial thickening anteriorly. There are small bilateral pleural effusions. The right pleural effusion is slightly increased in size. There are multiple bilateral noncalcified pulmonary nodules once again noted. These nodules do not appear very slightly smaller compared to the previous exam. For example, the largest nodule on the right measures 11 mm previously measuring 14 mm in maximum transverse dimension. Some of the nodules are unchanged. On the left, there is a 18 x 13 mm nodule in the infrahilar region previously measuring 23 x 17 mm. There are centrilobular emphysematous changes with scattered areas of fibrosis. Left subclavian Mediport catheter is present.. A new nodular density is present in the right middle lobe inferiorly 8 mm not readily apparent on the previous exam and could be postinflammatory or atelectatic. No acute bony anomalies. IMPRESSION: 1. Overall slight improvement in the pulmonary metastasis. There is a new nodular density in the right middle lobe inferiorly which could even be atelectatic or postinflammatory. No other new nodules are evident. 2. Small bilateral pleural effusions slightly larger on the right compared to the previous exam. 3. Centrilobular emphysema 4. Small pretracheal lymph node slightly larger at 13 x 10 mm compared to 11 x 10 mm
--- NOTE | 2017-09-21 10:36 | CT_ITS ---
CT abdomen pelvis w con CLINICAL INDICATION: Follow-up metastatic colon cancer ITS.REASON: COLON CA ORDERING PHYSICIAN: Jason Mccain MD PATIENT AGE: 77 years COMPARISON: 07/17/2017 TECHNIQUE: Axial images obtained with sagittal and coronal reformats. All CT scans at the facility use one or more dose reduction, viz: automated exposure control; ma/kV adjustment per patient size (including targeted exams where dose is matched to indication; i.e. head); or iterative reconstruction technique. PROCEDURE: Oral Contrast: Redicat IV Contrast: 75 mL's of Isovue-370 performed in conjunction with chest CT. FINDINGS: There is a hypodense lesion within left hepatic lobe measuring 3.4 x 2.7 x 3.4 cm. This is at the junction of segments 2 and 3. There is now biliary dilatation peripheral to the lesion. The mass is probably not significant changed in size. Contrast was not utilized on the previous exam. An additional lesion is present in the right hepatic lobe inferiorly in segment 5 measuring 3.6 x 2 cm. This may be slightly larger however, it is difficult to compare as contrast was not given on the previous exam. No new liver lesions are evident. The spleen, adrenal glands, and pancreas have an unremarkable appearance. There is nonobstructing 7 mm stone in the mid aspect of the right kidney and there are small bilateral renal cysts. Extensive postsurgical changes are present involving the abdomen and pelvis as previously described including a cystectomy with ileal loop. No hydronephrosis. The thick-walled cavity in the presacral region is once again noted but now contains fluid. Abscess or post radiation necrosis is considered. This has somewhat similar appearance on 05/01/2017. Fluid-filled cavity is slightly larger on today's exam measuring 4.9 cm previously measuring 4.2 cm. Left lower quadrant colostomy is present. There is some herniation of large bowel into the stoma there is been prior left-sided hemicolectomy. Ileal loop with right sided ostomy noted.. There is moderate amount of retained feces within the remaining colon with distended ascending colon. No evidence of small bowel obstruction. No acute bony anomalies. IMPRESSION: 1. Hepatic metastasis as described above. The right hepatic lobe lesion appears slightly larger. There is now intrahepatic biliary dilatation on the left distal to the left hepatic mass. 2. Extensive postsurgical changes with fluid filled cavity within the presacral and rectal area. This may represent postsurgical changes. Abscess cannot be excluded. The cavity is slightly larger. There is moderate thickening of the fat around the cavity as well as presacral thickening. 3. Constipation.
[2017-09-21 10:41] LABS: Blood Urea Nitrogen 17 mg/dL (7-18); Creatinine Clearance Estimated 63 mL/min (0-300); Creatinine,Serum 1.05 mg/dL (0.70-1.30); Estimated Glomerular Filt Rate 69 ml/min (>60); GFR (African American) 83 ML/MIN (>60)
[2017-09-21 11:37] LABS: Microscopic, Urine URINE MICROSCOPIC (MICROSCOPIC)
[2017-09-21 11:39] LABS: Appearance,Urine CLOUDY (Clear); Bilirubin,Urine Negative (Negative); Blood, Urine TRACE-L (Negative); Color,Urine YELLOW (Yellow); Glucose,Urine (UA) Negative (Negative); Ketones,Urine Negative (Negative); Leukocyte Esterase,Urine 2+ (Negative); Nitrate,Urine POSITIVE (Negative); Protein,Urine Negative (Negative); Specific Gravity, Urine 1.015 (1.005-1.030); Urobilinogen,Urine 0.2 EU/dl (0.2)
[2017-09-21 11:41] LABS: Basophils % 0.5 % (0.1-2.0); Eosinophils # 0.2 K/mm3 (0.0-0.4); Eosinophils % 2.6 % (0.1-12.0); Hemoglobin 10.4 g/dL (14.1-18.0); Lymphocytes # 1.8 K/mm3 (0.7-4.5); Lymphocytes % 21.5 K/mm3 (10-50); Mean Corpuscular HGB Conc 29.7 g/dL (31.8-35.4); Mean Corpuscular Hemoglobin 26.5 pg (27.0-31.2); Mean Corpuscular Volume 89.3 fl (80-94); Mean Platelet Volume 8.2 fl (7.4-10.4); Monocytes # 0.6 K/mm3 (0.1-1.0); Neutrophils # 5.9 K/mm3 (1.8-7.8); Neutrophils % 68.4 % (37.0-80.0); Platelet Count 398 K/mm3 (142-424); Red Blood Count 3.92 M/mm3 (4.60-6.20); Red Cell Distribution Width 15.9 % (11.5-17.5); White Blood Count 8.6 K/mm3 (4.8-10.8)
[2017-09-21 11:51] LABS: Alanine Aminotransferase 17 U/L (12-78); Albumin Level 2.5 gm/dL (3.4-5.0); Albumin/Globulin Ratio 0.6 (1.1-1.8); Alkaline Phosphatase 166 U/L (46-116); Anion Gap 13.8 mEq/L (5-15); Aspartate Amino Transferase 14 U/L (15-37); Bilirubin,Total 0.4 mg/dL (0.2-1.0); Blood Urea Nitrogen 17 mg/dL (7-18); Calcium 8.4 mg/dL (8.5-10.1); Carbon Dioxide 22 mmol/L (21.0-32.0); Chloride 107 mmol/L (98-107); Creatinine Clearance Estimated 63 mL/min (0-300); Creatinine,Serum 1.05 mg/dL (0.70-1.30); Estimated Glomerular Filt Rate 69 ml/min (>60); GFR (African American) 83 ML/MIN (>60); Globulin 4.5 gm/dl (1.3-3.2); Glucose 81 mg/dL (74-106); Potassium 3.8 mmoL/L (3.5-5.1); Sodium 139 mmol/L (136-145)
[2017-09-21 11:55] LABS: Amorphous Sediment,Urine 2+ /lpf; Bacteria,Urine 2+ /lpf; RBC,Urine Occasional #/hpf (0-3); WBC,Urine 50-100 #/hpf (0-3)
== END 2017-09-21 11:30 | disposition home or self-care (01) ==
LOC: RAD 10:24 → INF 10:27
PROVIDERS: Family Provider Family Medicine; PCP Family Medicine; Visit Provider Internal Medicine
DX: C18.9 Malignant neoplasm of colon, unspecified (principal); Z03.89 Encounter for observation for other suspected diseases and conditions ruled out; Z45.2 Encounter for adjustment and management of vascular access device; R82.90 Unspecified abnormal findings in urine
CPT/HCPCS: 71260; 74177; 80053; 81001; 82565; 84520; 85025; 87086; J1642; Q9967

== ENCOUNTER 2017-10-31 08:42 | Outpatient (CLI) | payer MEDICARE, SELFPAY ==
[2017-10-31] VITALS (10 sets, daily range): BP systolic 145–166; BP diastolic 70–88; PULSE 66–87; RESP 20–22; TEMP 36.4–36.9; O2SAT 95–98; BMI 27.2
[2017-10-31 09:32] LABS: Microscopic, Urine URINE MICROSCOPIC (MICROSCOPIC)
[2017-10-31 09:35] LABS: Appearance,Urine SL CLOUDY (Clear); Bilirubin,Urine Negative (Negative); Blood, Urine 3+ (Negative); Color,Urine YELLOW (Yellow); Glucose,Urine (UA) Negative (Negative); Ketones,Urine Negative (Negative); Leukocyte Esterase,Urine 1+ (Negative); Nitrate,Urine POSITIVE (Negative); PH,Urine 6.5 (5.0-8.5); Protein,Urine Negative (Negative); Urobilinogen,Urine 0.2 EU/dl (0.2)
[2017-10-31 09:36] LABS: Basophils % 0.4 % (0.1-2.0); Eosinophils # 0.1 K/mm3 (0.0-0.4); Eosinophils % 1.7 % (0.1-12.0); Hematocrit 36.6 % (42.0-52.0); Hemoglobin 10.9 g/dL (14.1-18.0); Lymphocytes # 1.3 K/mm3 (0.7-4.5); Mean Corpuscular HGB Conc 29.7 g/dL (31.8-35.4); Mean Corpuscular Hemoglobin 26.7 pg (27.0-31.2); Mean Corpuscular Volume 90.1 fl (80-94); Mean Platelet Volume 8.1 fl (7.4-10.4); Monocytes # 0.5 K/mm3 (0.1-1.0); Monocytes % 5.8 % (1.7-9.3); Neutrophils # 6.4 K/mm3 (1.8-7.8); Neutrophils % 76.1 % (37.0-80.0); Platelet Count 327 K/mm3 (142-424); Red Blood Count 4.06 M/mm3 (4.60-6.20); Red Cell Distribution Width 17.6 % (11.5-17.5); White Blood Count 8.4 K/mm3 (4.8-10.8)
[2017-10-31 09:47] LABS: Bacteria,Urine 1+ /lpf
[2017-10-31 09:50] LABS: Alanine Aminotransferase 20 U/L (12-78); Albumin Level 2.9 gm/dL (3.4-5.0); Albumin/Globulin Ratio 0.7 (1.1-1.8); Alkaline Phosphatase 188 U/L (46-116); Anion Gap 13.3 mEq/L (5-15); Aspartate Amino Transferase 14 U/L (15-37); Bilirubin,Total 0.3 mg/dL (0.2-1.0); Blood Urea Nitrogen 22 mg/dL (7-18); Calcium 8.6 mg/dL (8.5-10.1); Carbon Dioxide 21 mmol/L (21.0-32.0); Chloride 112 mmol/L (98-107); Creatinine Clearance Estimated 53 mL/min (0-300); Creatinine,Serum 1.29 mg/dL (0.70-1.30); Estimated Glomerular Filt Rate 54 ml/min (>60); GFR (African American) 66 ML/MIN (>60); Globulin 4.3 gm/dl (1.3-3.2); Glucose 95 mg/dL (74-106); Potassium 3.3 mmoL/L (3.5-5.1); Sodium 143 mmol/L (136-145); Total Protein,Serum 7.2 gm/dL (6.4-8.2)
== END 2017-10-31 14:45 | disposition home or self-care (01) ==
LOC: INF 08:42
PROVIDERS: Family Provider Family Medicine; PCP Family Medicine; Visit Provider Internal Medicine
DX: Z51.11 Encounter for antineoplastic chemotherapy (principal); C18.9 Malignant neoplasm of colon, unspecified; R82.90 Unspecified abnormal findings in urine
CPT/HCPCS: 80053; 81001; 85025; 87086; 96413; 96415; 96417; J9035; J9263; Q0166

== ENCOUNTER 2017-11-13 12:50 | Outpatient (CLI) | payer MEDICARE, SELFPAY ==
[2017-11-13 12:50] VITALS: BMI 27.1
[2017-11-13 13:04] LABS: Microscopic, Urine URINE MICROSCOPIC (MICROSCOPIC)
[2017-11-13 13:06] LABS: Basophils % 0.3 % (0.1-2.0); Eosinophils # 0.1 K/mm3 (0.0-0.4); Eosinophils % 1.5 % (0.1-12.0); Hematocrit 33.4 % (42.0-52.0); Hemoglobin 10.5 g/dL (14.1-18.0); Lymphocytes # 1.3 K/mm3 (0.7-4.5); Lymphocytes % 18.7 K/mm3 (10-50); Mean Corpuscular HGB Conc 31.4 g/dL (31.8-35.4); Mean Corpuscular Hemoglobin 27.6 pg (27.0-31.2); Mean Platelet Volume 7.6 fl (7.4-10.4); Monocytes # 0.4 K/mm3 (0.1-1.0); Monocytes % 5.5 % (1.7-9.3); Neutrophils # 5.2 K/mm3 (1.8-7.8); Platelet Count 315 K/mm3 (142-424); Red Cell Distribution Width 19.2 % (11.5-17.5)
[2017-11-13 13:06] LABS: Appearance,Urine CLOUDY (Clear); Bilirubin,Urine Negative (Negative); Blood, Urine 2+ (Negative); Color,Urine YELLOW (Yellow); Glucose,Urine (UA) Negative (Negative); Ketones,Urine Negative (Negative); Leukocyte Esterase,Urine 2+ (Negative); Nitrate,Urine POSITIVE (Negative); Protein,Urine TRACE (Negative); Specific Gravity, Urine 1.015 (1.005-1.030); Urobilinogen,Urine 0.2 EU/dl (0.2)
[2017-11-13 13:16] LABS: Alanine Aminotransferase 18 U/L (12-78); Albumin Level 2.8 gm/dL (3.4-5.0); Albumin/Globulin Ratio 0.7 (1.1-1.8); Alkaline Phosphatase 120 U/L (46-116); Anion Gap 15.2 mEq/L (5-15); Aspartate Amino Transferase 8 U/L (15-37); Bilirubin,Total 0.4 mg/dL (0.2-1.0); Blood Urea Nitrogen 14 mg/dL (7-18); Calcium 8.4 mg/dL (8.5-10.1); Carbon Dioxide 24 mmol/L (21.0-32.0); Chloride 111 mmol/L (98-107); Creatinine Clearance Estimated 64 mL/min (0-300); Estimated Glomerular Filt Rate 59 ml/min (>60); GFR (African American) 71 ML/MIN (>60); Globulin 3.9 gm/dl (1.3-3.2); Glucose 109 mg/dL (74-106); Potassium 3.2 mmoL/L (3.5-5.1); Sodium 147 mmol/L (136-145); Total Protein,Serum 6.7 gm/dL (6.4-8.2)
[2017-11-13 13:16] LABS: Bacteria,Urine 3+ /lpf; Squamous Epithelial Cell,Urine Occasional #/hpf (0-5); WBC,Urine 20-50 #/hpf (0-3)
== END 2017-11-13 13:05 | disposition home or self-care (01) ==
LOC: INF 12:50
PROVIDERS: Family Provider Family Medicine; PCP Family Medicine; Visit Provider Internal Medicine
DX: C18.9 Malignant neoplasm of colon, unspecified (principal); R82.90 Unspecified abnormal findings in urine
CPT/HCPCS: 80053; 81001; 85025; 87086; 87088; 87186; J1642

== ENCOUNTER 2017-11-14 08:36 | Outpatient (CLI) | payer MEDICARE, SELFPAY ==
[2017-11-14] VITALS (9 sets, daily range): BP systolic 148–160; BP diastolic 72–80; PULSE 74–78; RESP 18–20; TEMP 36.4; O2SAT 95–96
== END 2017-11-14 12:50 | disposition home or self-care (01) ==
LOC: INF 08:36
PROVIDERS: Family Provider Family Medicine; PCP Family Medicine; Visit Provider Internal Medicine
DX: Z51.11 Encounter for antineoplastic chemotherapy (principal); C18.9 Malignant neoplasm of colon, unspecified
CPT/HCPCS: 96413; 96415; 96417; J9035; J9263; Q0166

== ENCOUNTER 2017-11-24 09:45 | Outpatient (CLI) | payer MEDICARE, SELFPAY ==
[2017-11-24 10:01] VITALS: BMI 21.2
[2017-11-24 10:39] LABS: Microscopic, Urine URINE MICROSCOPIC (MICROSCOPIC)
[2017-11-24 10:43] LABS: Appearance,Urine CLOUDY (Clear); Basophils % 0.3 % (0.1-2.0); Bilirubin,Urine Negative (Negative); Blood, Urine 1+ (Negative); Color,Urine YELLOW (Yellow); Eosinophils # 0.1 K/mm3 (0.0-0.4); Eosinophils % 1.2 % (0.1-12.0); Glucose,Urine (UA) Negative (Negative); Hematocrit 35.4 % (42.0-52.0); Hemoglobin 11.1 g/dL (14.1-18.0); Ketones,Urine Negative (Negative); Leukocyte Esterase,Urine 3+ (Negative); Lymphocytes # 1.3 K/mm3 (0.7-4.5); Lymphocytes % 15.5 K/mm3 (10-50); Mean Corpuscular HGB Conc 31.3 g/dL (31.8-35.4); Mean Corpuscular Hemoglobin 27.3 pg (27.0-31.2); Mean Corpuscular Volume 87.4 fl (80-94); Monocytes # 0.8 K/mm3 (0.1-1.0); Monocytes % 9.3 % (1.7-9.3); Neutrophils # 6.1 K/mm3 (1.8-7.8); Neutrophils % 73.6 % (37.0-80.0); Nitrate,Urine POSITIVE (Negative); PH,Urine 7.5 (5.0-8.5); Platelet Count 332 K/mm3 (142-424); Protein,Urine 1+ (Negative); Red Blood Count 4.05 M/mm3 (4.60-6.20); Red Cell Distribution Width 20.9 % (11.5-17.5); Specific Gravity, Urine 1.015 (1.005-1.030); Urobilinogen,Urine 0.2 EU/dl (0.2); White Blood Count 8.3 K/mm3 (4.8-10.8)
[2017-11-24 10:57] LABS: Alanine Aminotransferase 28 U/L (12-78); Albumin Level 3.1 gm/dL (3.4-5.0); Albumin/Globulin Ratio 0.7 (1.1-1.8); Alkaline Phosphatase 138 U/L (46-116); Anion Gap 16.4 mEq/L (5-15); Aspartate Amino Transferase 11 U/L (15-37); Bilirubin,Total 0.7 mg/dL (0.2-1.0); Blood Urea Nitrogen 34 mg/dL (7-18); Calcium 8.8 mg/dL (8.5-10.1); Carbon Dioxide 13 mmol/L (21.0-32.0); Chloride 110 mmol/L (98-107); Creatinine Clearance Estimated 30 mL/min (0-300); Creatinine,Serum 1.98 mg/dL (0.70-1.30); Estimated Glomerular Filt Rate 33 ml/min (>60); GFR (African American) 40 ML/MIN (>60); Globulin 4.7 gm/dl (1.3-3.2); Glucose 111 mg/dL (74-106); Potassium 3.4 mmoL/L (3.5-5.1); Sodium 136 mmol/L (136-145); Total Protein,Serum 7.8 gm/dL (6.4-8.2)
[2017-11-24 11:01] LABS: Bacteria,Urine 3+ /lpf; WBC,Urine 20-50 #/hpf (0-3)
[2017-11-24 11:02] LABS: Amorphous Sediment,Urine 2+ /lpf; Hyaline Casts,Urine Occasional #/lpf (0); Mucus,Urine Trace /lpf
== END 2017-11-24 10:30 | disposition home or self-care (01) ==
LOC: INF 09:57
PROVIDERS: Family Provider Family Medicine; PCP Family Medicine; Visit Provider Internal Medicine
DX: C18.9 Malignant neoplasm of colon, unspecified (principal); Z45.2 Encounter for adjustment and management of vascular access device; R82.90 Unspecified abnormal findings in urine
CPT/HCPCS: 80053; 81001; 85025; 87086; J1642

== ENCOUNTER 2017-11-27 11:10 | Outpatient (CLI) | payer MEDICARE, SELFPAY ==
[2017-11-27 11:20] VITALS: BP 130/52; PULSE 74; RESP 18; TEMP 36.6; O2SAT 98
[2017-11-27 11:21] VITALS: BMI 21.5
[2017-11-27 11:41] LABS: Alanine Aminotransferase 21 U/L (12-78); Albumin Level 3.2 gm/dL (3.4-5.0); Albumin/Globulin Ratio 0.7 (1.1-1.8); Alkaline Phosphatase 148 U/L (46-116); Aspartate Amino Transferase 9 U/L (15-37); Bilirubin,Total 0.7 mg/dL (0.2-1.0); Blood Urea Nitrogen 39 mg/dL (7-18); Calcium 8.8 mg/dL (8.5-10.1); Carbon Dioxide 15 mmol/L (21.0-32.0); Chloride 110 mmol/L (98-107); Creatinine Clearance Estimated 35 mL/min (0-300); Creatinine,Serum 1.74 mg/dL (0.70-1.30); Estimated Glomerular Filt Rate 38 ml/min (>60); GFR (African American) 46 ML/MIN (>60); Globulin 4.8 gm/dl (1.3-3.2); Glucose 114 mg/dL (74-106); Sodium 138 mmol/L (136-145)
[2017-11-27 11:50] VITALS: BP 127/58; PULSE 71; RESP 18; O2SAT 97
[2017-11-27 12:20] VITALS: BP 125/56; PULSE 75; RESP 18; O2SAT 97
[2017-11-27 12:50] VITALS: BP 122/59; PULSE 74; RESP 18; O2SAT 97
[2017-11-27 13:20] VITALS: BP 126/59; PULSE 76; RESP 18; O2SAT 97
[2017-11-28 09:18] VITALS: BMI 21.5
[2017-11-28 09:49] LABS: Alanine Aminotransferase 19 U/L (12-78); Albumin Level 2.9 gm/dL (3.4-5.0); Albumin/Globulin Ratio 0.7 (1.1-1.8); Alkaline Phosphatase 134 U/L (46-116); Anion Gap 16.1 mEq/L (5-15); Aspartate Amino Transferase 6 U/L (15-37); Bilirubin,Total 0.5 mg/dL (0.2-1.0); Blood Urea Nitrogen 32 mg/dL (7-18); Calcium 8.3 mg/dL (8.5-10.1); Carbon Dioxide 14 mmol/L (21.0-32.0); Chloride 114 mmol/L (98-107); Creatinine Clearance Estimated 39 mL/min (0-300); Creatinine,Serum 1.54 mg/dL (0.70-1.30); Estimated Glomerular Filt Rate 44 ml/min (>60); GFR (African American) 53 ML/MIN (>60); Globulin 4.4 gm/dl (1.3-3.2); Glucose 151 mg/dL (74-106); Potassium 3.1 mmoL/L (3.5-5.1); Sodium 141 mmol/L (136-145); Total Protein,Serum 7.3 gm/dL (6.4-8.2)
== END 2017-11-27 13:30 | disposition home or self-care (01) ==
LOC: INF 17:34
PROVIDERS: Family Provider Family Medicine; PCP Family Medicine; Visit Provider Internal Medicine
DX: C18.9 Malignant neoplasm of colon, unspecified (principal)
CPT/HCPCS: 80053; 96360; 96361; J1642

== ENCOUNTER 2017-11-28 09:17 | Outpatient (CLI) | payer MEDICARE, SELFPAY ==
[2017-11-28 09:30] VITALS: BP 119/78; PULSE 74; RESP 20; TEMP 36.9; O2SAT 96
[2017-11-28 10:30] VITALS: BP 120/70; PULSE 70; RESP 20; TEMP 37.1; O2SAT 96
[2017-11-28 11:30] VITALS: BP 120/70; PULSE 66; RESP 20; TEMP 37.1; O2SAT 96
== END 2017-11-28 11:35 | disposition home or self-care (01) ==
LOC: INF 09:17
PROVIDERS: Family Provider Family Medicine; PCP Family Medicine; Visit Provider Internal Medicine
DX: C18.9 Malignant neoplasm of colon, unspecified
CPT/HCPCS: 96360; 96361; 96365; 96366; J1642

== ENCOUNTER 2017-11-29 09:33 | Outpatient (CLI) | payer MEDICARE, SELFPAY ==
[2017-11-29 09:49] VITALS: BMI 21.8
[2017-11-29 09:50] VITALS: BP 118/77; PULSE 72; RESP 18; TEMP 36.6; O2SAT 98
[2017-11-29 10:15] LABS: Anion Gap 15.1 mEq/L (5-15); Blood Urea Nitrogen 25 mg/dL (7-18); Calcium 8.2 mg/dL (8.5-10.1); Carbon Dioxide 15 mmol/L (21.0-32.0); Chloride 115 mmol/L (98-107); Creatinine Clearance Estimated 42 mL/min (0-300); Creatinine,Serum 1.45 mg/dL (0.70-1.30); Estimated Glomerular Filt Rate 47 ml/min (>60); GFR (African American) 57 ML/MIN (>60); Glucose 96 mg/dL (74-106); Potassium 4.1 mmoL/L (3.5-5.1); Sodium 141 mmol/L (136-145)
[2017-11-29 10:20] VITALS: BP 122/67; PULSE 79; RESP 18; O2SAT 98
[2017-11-29 10:50] VITALS: BP 119/71; PULSE 76; RESP 18; O2SAT 97
[2017-11-29 11:20] VITALS: BP 120/74; PULSE 74; RESP 18; O2SAT 97
[2017-11-29 11:50] VITALS: BP 117/79; PULSE 77; RESP 18; O2SAT 98
== END 2017-11-29 12:00 | disposition home or self-care (01) ==
LOC: INF 09:33
PROVIDERS: Family Provider Family Medicine; PCP Family Medicine; Visit Provider Internal Medicine
DX: C18.9 Malignant neoplasm of colon, unspecified (principal)
CPT/HCPCS: 80048; 96360; 96361; J1642

== ENCOUNTER 2017-11-30 08:50 | Outpatient (CLI) | payer MEDICARE, SELFPAY ==
[2017-11-30 09:04] VITALS: BMI 21.5
[2017-11-30 09:15] VITALS: BP 118/84; PULSE 80; RESP 18; O2SAT 91
[2017-11-30 09:45] VITALS: BP 121/72; PULSE 63; RESP 18
[2017-11-30 09:49] LABS: Alanine Aminotransferase 19 U/L (12-78); Albumin Level 2.7 gm/dL (3.4-5.0); Albumin/Globulin Ratio 0.6 (1.1-1.8); Alkaline Phosphatase 115 U/L (46-116); Anion Gap 16.8 mEq/L (5-15); Aspartate Amino Transferase 7 U/L (15-37); Bilirubin,Total 0.5 mg/dL (0.2-1.0); Blood Urea Nitrogen 21 mg/dL (7-18); Calcium 8.2 mg/dL (8.5-10.1); Carbon Dioxide 16 mmol/L (21.0-32.0); Chloride 113 mmol/L (98-107); Creatinine Clearance Estimated 45 mL/min (0-300); Creatinine,Serum 1.35 mg/dL (0.70-1.30); Estimated Glomerular Filt Rate 51 ml/min (>60); GFR (African American) 62 ML/MIN (>60); Globulin 4.2 gm/dl (1.3-3.2); Glucose 106 mg/dL (74-106); Potassium 3.8 mmoL/L (3.5-5.1); Sodium 142 mmol/L (136-145); Total Protein,Serum 6.9 gm/dL (6.4-8.2)
[2017-11-30 10:15] VITALS: BP 131/76; PULSE 63; RESP 18
[2017-11-30 10:45] VITALS: BP 115/86; PULSE 73; RESP 16
[2017-11-30 11:15] VITALS: BP 139/85; PULSE 68; RESP 16
== END 2017-11-30 11:40 | disposition home or self-care (01) ==
PROVIDERS: Family Provider Family Medicine; PCP Family Medicine; Visit Provider Internal Medicine
DX: C18.9 Malignant neoplasm of colon, unspecified (principal)
CPT/HCPCS: 80053; 96360; 96361; J1642

== ENCOUNTER 2017-12-01 08:45 | Outpatient (CLI) | payer MEDICARE, SELFPAY ==
--- NOTE | 2017-12-01 08:54 | CT_ITS ---
CT abdomen pelvis w con CLINICAL INDICATION: Follow-up: Cancer ITS.REASON: COLON CA ORDERING PHYSICIAN: Jason Mccain MD PATIENT AGE: 77 years COMPARISON: None TECHNIQUE: Axial images obtained with sagittal and coronal reformats. All CT scans at the facility use one or more dose reduction, viz: automated exposure control; ma/kV adjustment per patient size (including targeted exams where dose is matched to indication; i.e. head); or iterative reconstruction technique. PROCEDURE: Oral Contrast: Redicat IV Contrast: 75 mL's of Isovue-370 performed in conjunction with the chest CT. FINDINGS: Portal venous and delayed images are obtained. There are 2 lesions of the liver one in the left hepatic lobe. Additional lesion is present in the right hepatic lobe anteriorly. These are more pronounced on the portal phase images with the left hepatic lobe area of decreased density measuring 4.5 x 5 cm. This however may all not represent tumor. The larger area of decreased attenuation could represent difference in vascular blood flow. Has the patient had any type of embolization procedure? On the delayed images the area of decreased attenuation measures 2.6 cm. On the portal phase images the right hepatic lobe lesion measures 3 x 2 cm rounded perceptible on the delayed enhanced images. Previously on 09/21/2017 the lesion in the left hepatic lobe measured 3.5 x 2.8 cm. Lesion in the right hepatic lobe measured 3.6 x 2 cm on the portal venous phase. There are a few subcentimeter isodensity is of the liver also noted unchanged. Spleen and adrenal glands are unremarkable. A nonobstructing 4 mm stone is present in the mid polar region of the right kidney. There are small bilateral renal cysts. Status post left-sided hemicolectomy. A cavity is once again noted in the rectal region with an air-fluid level and moderate thickening of the fat around this cavity. Previously this cavity was occupied entirely by fluid but now contains gas and fluid. Gas is also noted now extending anteriorly from this cavity toward the symphysis pubis in the region of the urinary bladder fossa superior to the prostate gland. This is suspicious for an abscess with dissection anteriorly. There is a left lower quadrant colostomy. There is a moderate amount retained colonic feces. No ankle of large bowel of the transverse colon is herniated into the colostomy site similar to the previous exam. There has been prior cystectomy with an ileal loop and ileostomy in the right lower quadrant. No hydronephrosis. No acute bony anomalies IMPRESSION: 1. Hepatic lesions once again noted. The lesions appear larger on the immediate enhanced images however this may be related low phenomenon. On the delayed images the 2 main lesions of the liver appear slightly less apparent. 2. Postsurgical changes from prior hemicolectomy. The complex pelvic cavity is once again noted with an air-fluid level. Increasing gas is noted along the anterior aspect of the cavity extending anteriorly toward the symphysis pubis. This is suspicious for an abscess with dissection anteriorly. Extension of necrotic neoplasm also a consideration.
--- NOTE | 2017-12-01 09:00 | CT_ITS ---
CT chest w con HISTORY: Follow-up: Cancer ITS.REASON: COLON CA ORDERING PHYSICIAN: Jason Mccain MD PATIENT AGE: 77 years COMPARISON: 09/21/2017 TECHNIQUE: Axial images obtained following the administration of 75 mL of Isovue 370 . Sagittal, and coronal reformatted images are also generated and reviewed. All CT scans at the facility use one or more dose reduction, viz: automated exposure control, ma/kV adjustment per patient size (including targeted exams where dose is matched to indication, i.e. head), or iterative reconstruction technique. FINDINGS: Left subclavian Mediport catheter is present. There are few small mediastinal lymph nodes measuring up to 9 mm in the pretracheal region. No enlarged mediastinal or hilar nodes are evident. There are small bilateral pleural effusions. The right effusion is slightly smaller compared to previous exam. There are centrilobular emphysematous changes with multiple bilateral pulmonary nodules consistent with pulmonary metastasis. Many of these nodules are slightly smaller compared to the previous exam. None of the nodules appear larger. No new nodules are evident. No bony destructive process evident. IMPRESSION: Overall slight improvement in the pulmonary metastasis. Centrilobular emphysema with small bilateral pleural effusions
[2017-12-01 09:33] VITALS: BMI 23.1
[2017-12-01 10:00] VITALS: BP 145/78; PULSE 66; RESP 18; TEMP 36.6
[2017-12-01 10:12] LABS: Alanine Aminotransferase 17 U/L (12-78); Albumin Level 2.7 gm/dL (3.4-5.0); Albumin/Globulin Ratio 0.6 (1.1-1.8); Alkaline Phosphatase 113 U/L (46-116); Anion Gap 15.3 mEq/L (5-15); Aspartate Amino Transferase 8 U/L (15-37); Bilirubin,Total 0.6 mg/dL (0.2-1.0); Blood Urea Nitrogen 18 mg/dL (7-18); Calcium 8.3 mg/dL (8.5-10.1); Carbon Dioxide 16 mmol/L (21.0-32.0); Chloride 111 mmol/L (98-107); Creatinine Clearance Estimated 55 mL/min (0-300); Creatinine,Serum 1.17 mg/dL (0.70-1.30); Estimated Glomerular Filt Rate 61 ml/min (>60); GFR (African American) 73 ML/MIN (>60); Globulin 4.2 gm/dl (1.3-3.2); Glucose 86 mg/dL (74-106); Potassium 4.3 mmoL/L (3.5-5.1); Sodium 138 mmol/L (136-145); Total Protein,Serum 6.9 gm/dL (6.4-8.2)
[2017-12-01 10:30] VITALS: BP 136/108; PULSE 61; RESP 18
[2017-12-01 11:00] VITALS: BP 135/86; PULSE 61; RESP 18
[2017-12-01 11:30] VITALS: BP 138/85; PULSE 62; RESP 18
[2017-12-01 12:00] VITALS: BP 145/103; PULSE 66; RESP 18
== END 2017-12-01 12:00 | disposition home or self-care (01) ==
LOC: RAD 08:45
PROVIDERS: Family Provider Family Medicine; PCP Family Medicine; Visit Provider Internal Medicine
DX: C18.9 Malignant neoplasm of colon, unspecified (principal)
CPT/HCPCS: 71260; 74177; 80053; 96360; 96361; J1642; Q9967

== ENCOUNTER 2017-12-04 09:30 | Outpatient (CLI) | payer MEDICARE, SELFPAY ==
[2017-12-04 09:30] VITALS: BP 133/67; PULSE 66; RESP 20; TEMP 36.9; O2SAT 96; BMI 21.5
[2017-12-04 10:30] VITALS: BP 135/70; PULSE 91; RESP 20; TEMP 36.9; O2SAT 96
[2017-12-04 11:30] VITALS: BP 135/74; PULSE 68; RESP 20; TEMP 36.9; O2SAT 96
[2017-12-04 11:42] LABS: Alanine Aminotransferase 20 U/L (12-78); Albumin Level 2.6 gm/dL (3.4-5.0); Albumin/Globulin Ratio 0.7 (1.1-1.8); Alkaline Phosphatase 100 U/L (46-116); Anion Gap 12.2 mEq/L (5-15); Aspartate Amino Transferase 10 U/L (15-37); Bilirubin,Total 0.5 mg/dL (0.2-1.0); Blood Urea Nitrogen 21 mg/dL (7-18); Calcium 8.1 mg/dL (8.5-10.1); Carbon Dioxide 22 mmol/L (21.0-32.0); Chloride 110 mmol/L (98-107); Creatinine Clearance Estimated 48 mL/min (0-300); Creatinine,Serum 1.27 mg/dL (0.70-1.30); Estimated Glomerular Filt Rate 55 ml/min (>60); GFR (African American) 67 ML/MIN (>60); Globulin 3.8 gm/dl (1.3-3.2); Glucose 82 mg/dL (74-106); Potassium 4.2 mmoL/L (3.5-5.1); Sodium 140 mmol/L (136-145); Total Protein,Serum 6.4 gm/dL (6.4-8.2)
== END 2017-12-04 11:30 | disposition home or self-care (01) ==
LOC: INF 09:57
PROVIDERS: Family Provider Family Medicine; PCP Family Medicine; Visit Provider Internal Medicine
DX: C18.9 Malignant neoplasm of colon, unspecified (principal)
CPT/HCPCS: 80053; 96360; 96361

== ENCOUNTER 2017-12-05 09:26 | Outpatient (CLI) | payer MEDICARE, SELFPAY ==
[2017-12-05 09:30] VITALS: BP 129/78; PULSE 83; RESP 18; TEMP 36.6; O2SAT 98
[2017-12-05 09:32] VITALS: BMI 21.5
[2017-12-05 09:51] LABS: Alanine Aminotransferase 22 U/L (12-78); Albumin Level 2.8 gm/dL (3.4-5.0); Albumin/Globulin Ratio 0.7 (1.1-1.8); Alkaline Phosphatase 114 U/L (46-116); Anion Gap 12.9 mEq/L (5-15); Aspartate Amino Transferase 15 U/L (15-37); Bilirubin,Total 0.7 mg/dL (0.2-1.0); Blood Urea Nitrogen 17 mg/dL (7-18); Calcium 8.3 mg/dL (8.5-10.1); Carbon Dioxide 24 mmol/L (21.0-32.0); Chloride 110 mmol/L (98-107); Creatinine Clearance Estimated 43 mL/min (0-300); Estimated Glomerular Filt Rate 49 ml/min (>60); GFR (African American) 60 ML/MIN (>60); Globulin 4.3 gm/dl (1.3-3.2); Glucose 124 mg/dL (74-106); Potassium 3.9 mmoL/L (3.5-5.1); Sodium 143 mmol/L (136-145); Total Protein,Serum 7.1 gm/dL (6.4-8.2)
[2017-12-05 10:00] VITALS: BP 124/76; PULSE 81; RESP 18; O2SAT 97
[2017-12-05 10:30] VITALS: BP 131/74; PULSE 81; RESP 18; O2SAT 97
[2017-12-05 11:00] VITALS: BP 126/74; PULSE 80; RESP 18; O2SAT 96
[2017-12-05 11:25] VITALS: BP 128/71; PULSE 79; RESP 18; O2SAT 97
== END 2017-12-05 11:30 | disposition home or self-care (01) ==
LOC: INF 09:26
PROVIDERS: Family Provider Family Medicine; PCP Family Medicine; Visit Provider Internal Medicine
DX: C18.9 Malignant neoplasm of colon, unspecified (principal)
CPT/HCPCS: 80053; 96360; 96361; J1642

== ENCOUNTER 2017-12-08 09:00 | Outpatient (CLI) | payer MEDICARE, SELFPAY ==
[2017-12-08 09:36] VITALS: BP 113/66; PULSE 66; RESP 18; TEMP 36.3; O2SAT 98; BMI 22.9
[2017-12-08 09:57] LABS: Alanine Aminotransferase 31 U/L (12-78); Albumin Level 2.9 gm/dL (3.4-5.0); Albumin/Globulin Ratio 0.7 (1.1-1.8); Alkaline Phosphatase 123 U/L (46-116); Anion Gap 14.4 mEq/L (5-15); Aspartate Amino Transferase 18 U/L (15-37); Bilirubin,Total 0.6 mg/dL (0.2-1.0); Blood Urea Nitrogen 18 mg/dL (7-18); Calcium 8.6 mg/dL (8.5-10.1); Carbon Dioxide 22 mmol/L (21.0-32.0); Chloride 109 mmol/L (98-107); Creatinine Clearance Estimated 47 mL/min (0-300); Creatinine,Serum 1.38 mg/dL (0.70-1.30); Estimated Glomerular Filt Rate 50 ml/min (>60); GFR (African American) 61 ML/MIN (>60); Globulin 4.2 gm/dl (1.3-3.2); Glucose 92 mg/dL (74-106); Potassium 4.4 mmoL/L (3.5-5.1); Sodium 141 mmol/L (136-145); Total Protein,Serum 7.1 gm/dL (6.4-8.2)
[2017-12-08 10:32] VITALS: BP 126/67; PULSE 67; RESP 18; TEMP 36.3; O2SAT 96
[2017-12-08 10:37] VITALS: BP 126/67; PULSE 68; RESP 18; TEMP 36.3; O2SAT 96
== END 2017-12-08 10:38 | disposition home or self-care (01) ==
LOC: INF 09:33
PROVIDERS: Family Provider Family Medicine; PCP Family Medicine; Visit Provider Internal Medicine
DX: C18.9 Malignant neoplasm of colon, unspecified (principal)
CPT/HCPCS: 80053; 96360; 96365; J1642

== ENCOUNTER 2017-12-11 09:35 | Outpatient (CLI) | payer MEDICARE, SELFPAY ==
[2017-12-11 09:35] VITALS: BMI 22.9
[2017-12-11 10:00] VITALS: BP 106/63; PULSE 66; RESP 20; TEMP 36.7; O2SAT 96
[2017-12-11 10:30] VITALS: BP 107/63; PULSE 68; RESP 20; TEMP 36.9; O2SAT 96
[2017-12-11 10:36] LABS: Alanine Aminotransferase 22 U/L (12-78); Albumin Level 2.7 gm/dL (3.4-5.0); Albumin/Globulin Ratio 0.7 (1.1-1.8); Alkaline Phosphatase 120 U/L (46-116); Aspartate Amino Transferase 13 U/L (15-37); Bilirubin,Total 0.6 mg/dL (0.2-1.0); Blood Urea Nitrogen 17 mg/dL (7-18); Calcium 8.3 mg/dL (8.5-10.1); Carbon Dioxide 23 mmol/L (21.0-32.0); Chloride 108 mmol/L (98-107); Creatinine Clearance Estimated 42 mL/min (0-300); Creatinine,Serum 1.52 mg/dL (0.70-1.30); Estimated Glomerular Filt Rate 45 ml/min (>60); GFR (African American) 54 ML/MIN (>60); Globulin 4.1 gm/dl (1.3-3.2); Glucose 114 mg/dL (74-106); Sodium 139 mmol/L (136-145); Total Protein,Serum 6.8 gm/dL (6.4-8.2)
[2017-12-11 11:00] VITALS: BP 107/68; PULSE 68; RESP 20; TEMP 36.9; O2SAT 96
== END 2017-12-11 11:00 | disposition home or self-care (01) ==
LOC: INF 09:45
PROVIDERS: Family Provider Family Medicine; PCP Family Medicine; Visit Provider Internal Medicine
DX: C18.9 Malignant neoplasm of colon, unspecified (principal)
CPT/HCPCS: 80053; 96360; J1642

== ENCOUNTER 2017-12-13 09:30 | Outpatient (CLI) | payer MEDICARE, SELFPAY ==
[2017-12-13 09:33] VITALS: BP 144/78; PULSE 64; RESP 18; TEMP 36.6; O2SAT 97
[2017-12-13 09:43] VITALS: BMI 22.9
[2017-12-13 10:03] VITALS: BP 138/72; PULSE 69; RESP 18; O2SAT 97
[2017-12-13 10:06] LABS: Alanine Aminotransferase 24 U/L (12-78); Albumin Level 2.8 gm/dL (3.4-5.0); Albumin/Globulin Ratio 0.7 (1.1-1.8); Alkaline Phosphatase 123 U/L (46-116); Anion Gap 10.7 mEq/L (5-15); Aspartate Amino Transferase 11 U/L (15-37); Bilirubin,Total 0.6 mg/dL (0.2-1.0); Blood Urea Nitrogen 15 mg/dL (7-18); Calcium 8.3 mg/dL (8.5-10.1); Carbon Dioxide 24 mmol/L (21.0-32.0); Chloride 110 mmol/L (98-107); Creatinine Clearance Estimated 46 mL/min (0-300); Creatinine,Serum 1.41 mg/dL (0.70-1.30); Estimated Glomerular Filt Rate 49 ml/min (>60); GFR (African American) 59 ML/MIN (>60); Globulin 4.2 gm/dl (1.3-3.2); Glucose 138 mg/dL (74-106); Potassium 3.7 mmoL/L (3.5-5.1); Sodium 141 mmol/L (136-145)
[2017-12-13 10:33] VITALS: BP 142/79; PULSE 67; RESP 18; O2SAT 97
== END 2017-12-13 10:45 | disposition home or self-care (01) ==
LOC: INF 09:31
PROVIDERS: Family Provider Family Medicine; PCP Family Medicine; Visit Provider Internal Medicine
DX: C18.9 Malignant neoplasm of colon, unspecified (principal)
CPT/HCPCS: 80053; 96360; J1642

== ENCOUNTER 2017-12-15 09:05 | Outpatient (CLI) | payer MEDICARE, SELFPAY ==
[2017-12-15 09:22] VITALS: BP 131/62; PULSE 70; RESP 18; TEMP 36.5; O2SAT 98
[2017-12-15 09:52] VITALS: BP 129/64; PULSE 72; RESP 18; O2SAT 97
[2017-12-15 10:25] VITALS: BP 136/69; PULSE 76; RESP 18; O2SAT 97
== END 2017-12-15 10:38 | disposition home or self-care (01) ==
LOC: INF 09:05
PROVIDERS: Family Provider Family Medicine; PCP Family Medicine; Visit Provider Internal Medicine
DX: C18.9 Malignant neoplasm of colon, unspecified (principal)
CPT/HCPCS: 96360; J1642

== ENCOUNTER 2017-12-18 08:40 | Outpatient (CLI) | payer MEDICARE, SELFPAY ==
[2017-12-18 08:50] VITALS: BP 124/72; PULSE 74; RESP 18; TEMP 36.5; O2SAT 97
[2017-12-18 09:20] VITALS: BP 121/70; PULSE 76; RESP 18; O2SAT 96
[2017-12-18 09:55] VITALS: BP 126/74; PULSE 78; RESP 18; O2SAT 97
== END 2017-12-18 10:00 | disposition home or self-care (01) ==
LOC: INF 08:40
PROVIDERS: Family Provider Family Medicine; PCP Family Medicine; Visit Provider Internal Medicine
DX: C18.9 Malignant neoplasm of colon, unspecified (principal)
CPT/HCPCS: 96360; J1642

== ENCOUNTER 2017-12-20 11:30 | Outpatient (CLI) | payer MEDICARE, SELFPAY ==
[2017-12-20 11:49] VITALS: BMI 22.5
[2017-12-20 12:05] VITALS: BP 135/73; PULSE 76; RESP 18; TEMP 36.5; O2SAT 96
[2017-12-20 12:06] LABS: Basophils % 0.3 % (0.1-2.0); Eosinophils # 0.2 K/mm3 (0.0-0.4); Eosinophils % 2.1 % (0.1-12.0); Hematocrit 33.6 % (42.0-52.0); Hemoglobin 10.4 g/dL (14.1-18.0); Lymphocytes # 1.3 K/mm3 (0.7-4.5); Lymphocytes % 18.3 K/mm3 (10-50); Mean Corpuscular HGB Conc 31.1 g/dL (31.8-35.4); Mean Corpuscular Volume 93.3 fl (80-94); Mean Platelet Volume 7.4 fl (7.4-10.4); Monocytes # 0.5 K/mm3 (0.1-1.0); Monocytes % 6.5 % (1.7-9.3); Neutrophils # 5.2 K/mm3 (1.8-7.8); Neutrophils % 72.9 % (37.0-80.0); Platelet Count 314 K/mm3 (142-424); Red Cell Distribution Width 20.3 % (11.5-17.5); White Blood Count 7.1 K/mm3 (4.8-10.8)
[2017-12-20 12:17] LABS: Alanine Aminotransferase 19 U/L (12-78); Albumin Level 2.8 gm/dL (3.4-5.0); Albumin/Globulin Ratio 0.7 (1.1-1.8); Alkaline Phosphatase 120 U/L (46-116); Anion Gap 13.2 mEq/L (5-15); Aspartate Amino Transferase 11 U/L (15-37); Bilirubin,Total 0.4 mg/dL (0.2-1.0); Blood Urea Nitrogen 17 mg/dL (7-18); Calcium 8.4 mg/dL (8.5-10.1); Carbon Dioxide 24 mmol/L (21.0-32.0); Chloride 109 mmol/L (98-107); Creatinine Clearance Estimated 47 mL/min (0-300); Creatinine,Serum 1.34 mg/dL (0.70-1.30); Estimated Glomerular Filt Rate 52 ml/min (>60); GFR (African American) 63 ML/MIN (>60); Globulin 4.2 gm/dl (1.3-3.2); Glucose 130 mg/dL (74-106); Potassium 4.2 mmoL/L (3.5-5.1); Sodium 142 mmol/L (136-145)
[2017-12-20 12:35] VITALS: BP 133/72; PULSE 68; RESP 18
[2017-12-20 13:05] VITALS: BP 156/87; PULSE 65; RESP 18
== END 2017-12-20 13:15 | disposition home or self-care (01) ==
LOC: INF 11:46
PROVIDERS: Family Provider Family Medicine; PCP Family Medicine; Visit Provider Internal Medicine
DX: C18.9 Malignant neoplasm of colon, unspecified (principal)
CPT/HCPCS: 80053; 85025; 96360; J1642

== ENCOUNTER 2018-01-10 08:30 | Outpatient (CLI) | payer MEDICARE, SELFPAY ==
[2018-01-10 08:39] VITALS: BMI 23.2
[2018-01-10 08:59] LABS: Basophils % 0.4 % (0.1-2.0); Eosinophils # 0.2 K/mm3 (0.0-0.4); Eosinophils % 2.7 % (0.1-12.0); Hematocrit 35.7 % (42.0-52.0); Lymphocytes # 1.3 K/mm3 (0.7-4.5); Lymphocytes % 19.7 K/mm3 (10-50); Mean Corpuscular HGB Conc 30.9 g/dL (31.8-35.4); Mean Corpuscular Hemoglobin 29.4 pg (27.0-31.2); Mean Corpuscular Volume 95.1 fl (80-94); Monocytes # 0.5 K/mm3 (0.1-1.0); Monocytes % 7.3 % (1.7-9.3); Neutrophils # 4.5 K/mm3 (1.8-7.8); Platelet Count 329 K/mm3 (142-424); Red Blood Count 3.75 M/mm3 (4.60-6.20); White Blood Count 6.4 K/mm3 (4.8-10.8)
[2018-01-10 09:09] LABS: Alanine Aminotransferase 19 U/L (12-78); Albumin Level 2.9 gm/dL (3.4-5.0); Albumin/Globulin Ratio 0.7 (1.1-1.8); Alkaline Phosphatase 144 U/L (46-116); Anion Gap 12.5 mEq/L (5-15); Aspartate Amino Transferase 10 U/L (15-37); Bilirubin,Total 0.5 mg/dL (0.2-1.0); Blood Urea Nitrogen 20 mg/dL (7-18); Calcium 8.6 mg/dL (8.5-10.1); Carbon Dioxide 25 mmol/L (21.0-32.0); Chloride 112 mmol/L (98-107); Creatinine Clearance Estimated 54 mL/min (0-300); Creatinine,Serum 1.21 mg/dL (0.70-1.30); Estimated Glomerular Filt Rate 58 ml/min (>60); GFR (African American) 71 ML/MIN (>60); Globulin 4.2 gm/dl (1.3-3.2); Glucose 111 mg/dL (74-106); Potassium 3.5 mmoL/L (3.5-5.1); Sodium 146 mmol/L (136-145); Total Protein,Serum 7.1 gm/dL (6.4-8.2)
== END 2018-01-10 08:50 | disposition home or self-care (01) ==
LOC: INF 08:40
PROVIDERS: PCP Family Medicine; Visit Provider Internal Medicine Medical Oncology
DX: Z45.2 Encounter for adjustment and management of vascular access device (principal); C20 Malignant neoplasm of rectum
CPT/HCPCS: 80053; 85025; J1642

== ENCOUNTER 2018-01-25 08:54 | Outpatient (CLI) | payer MEDICARE, SELFPAY ==
[2018-01-25 08:38] VITALS: BMI 23.6
--- NOTE | 2018-01-25 08:58 | CT_ITS ---
CT chest w con HISTORY: Follow-up cancer of the colon ITS.REASON: COLON CA ORDERING PHYSICIAN: Rachelle Vásquez MD PATIENT AGE: 77 years COMPARISON: None TECHNIQUE: Axial images obtained following the administration of 75 mL of Isovue 370 . Sagittal, and coronal reformatted images are also generated and reviewed. All CT scans at the facility use one or more dose reduction, viz: automated exposure control, ma/kV adjustment per patient size (including targeted exams where dose is matched to indication, i.e. head), or iterative reconstruction technique. FINDINGS: Small nodes are present in the mediastinum as before. No evidence of aortic aneurysm or dissection. No evidence of central pulmonary embolus. There is minimal thickening of the pericardium anteriorly. There are moderate centrilobular emphysematous changes. There is a medium-sized right pleural effusion and a small left pleural effusion. Both of these have increased in size compared to the previous exam. There are scattered bilateral pulmonary nodules which have increased in size and number consistent with progression of metastatic disease. The nodules range in size from a few millimeters up to 2 x 1.5 cm and the left lower lobe. Previously this nodule is 1.5 x 1 cm. Mediport catheter is present from left subclavian approach. No bony destructive process. IMPRESSION: Interval progression of pulmonary metastasis with increase in bilateral pleural effusions.
--- NOTE | 2018-01-25 08:58 | CT_ITS ---
CT abdomen pelvis w con CLINICAL INDICATION: Follow-up metastatic cancer of the colon ITS.REASON: COLON CA ORDERING PHYSICIAN: Rachelle Vásquez MD PATIENT AGE: 77 years COMPARISON: 12/01/2017 TECHNIQUE: Axial images obtained with sagittal and coronal reformats. All CT scans at the facility use one or more dose reduction, viz: automated exposure control, ma/kV adjustment per patient size (including targeted exams where dose is matched to indication, i.e. head), or iterative reconstruction technique. PROCEDURE: Oral Contrast: Redicat IV Contrast: 75 mL's of Isovue-370 performed in conjunction with chest CT. FINDINGS: Lung base images show moderate sized bilateral pleural effusions right larger than left. These have increased in size compared to the previous exam. There are 2 lesions within the liver one in the lateral segment of the left hepatic lobe and one in the right hepatic lobe inferiorly. These are previously described. As mentioned previously it is difficult to measure the true dimension of the lesions however, they do not appear significantly changed. The left lobe lesion measures approximately 5.6 x 4.3 cm and the right lobe lesion measures approximately 3 x 2 cm There is biliary dilatation within the left hepatic lobe lateral segment which is somewhat worse on today's exam. A 5 mm isodense is present in the hepatic dome anteriorly may be due to small cyst. Left adrenal gland is enlarged with a 15 mm nodule within the left adrenal gland not significant changed. The spleen, right adrenal gland, and pancreas are unremarkable. There is some hyperdensity along the posterior aspect of the gallbladder may be due to small stones or sludge. There is a 11 mm right renal cyst. Left lower quadrant colostomy noted with some herniation of large bowel into the colostomy site. The moderate amount retained colonic feces. There has been prior cystectomy with right sided ileal loop. There are distended loops of small bowel in the lower pelvic region with bowel wall thickening somewhat more prominent on today's exam. There Postsurgical changes in the pelvis with complex pelvic cavity with air-fluid level and abnormal soft tissue density once again noted with gas extending anteriorly toward the symphysis pubis as previously described not significantly changed. Pelvic abscess/postsurgical change with fistula is considered. The small bowel appears increasingly thickened in the pelvic region anteriorly. There is fusion of the SI joints. No bony destructive process evident. IMPRESSION: 1. Hepatic metastasis is once again noted. The size is not significant changed however, there is increasing biliary dilatation within the lateral segment of the left hepatic lobe. 2. Extensive postsurgical changes from prior left hemicolectomy and cystectomy with left lower quadrant colostomy and right lower quadrant ileal loop. 3. Complex cavity within the pelvis with air-fluid level and abnormal soft tissue as before consistent with postsurgical change with possible abscess. 4. Increasing small bowel wall thickening within the pelvic region.
[2018-01-25 09:12] LABS: Blood Urea Nitrogen 22 mg/dL (7-18); Creatinine Clearance Estimated 54 mL/min (0-300); Creatinine,Serum 1.24 mg/dL (0.70-1.30); Estimated Glomerular Filt Rate 57 ml/min (>60); GFR (African American) 69 ML/MIN (>60)
== END 2018-01-25 10:00 | disposition home or self-care (01) ==
LOC: RAD 08:54
PROVIDERS: Family Provider Family Medicine; PCP Family Medicine; Visit Provider Internal Medicine Medical Oncology
DX: C18.9 Malignant neoplasm of colon, unspecified (principal)
CPT/HCPCS: 71260; 74177; 82565; 84520; J1642; Q9967

== ENCOUNTER 2018-02-01 13:35 | Outpatient (CLI) | payer MEDICARE, SELFPAY ==
[2018-02-01 13:31] VITALS: BMI 23.6
[2018-02-01 14:18] LABS: Basophils % 0.3 % (0.1-2.0); Eosinophils % 0.4 % (0.1-12.0); Hematocrit 36.1 % (42.0-52.0); Hemoglobin 11.1 g/dL (14.1-18.0); Lymphocytes # 1.2 K/mm3 (0.7-4.5); Lymphocytes % 11.8 K/mm3 (10-50); Mean Corpuscular HGB Conc 30.9 g/dL (31.8-35.4); Mean Corpuscular Hemoglobin 29.3 pg (27.0-31.2); Mean Platelet Volume 7.7 fl (7.4-10.4); Monocytes # 0.8 K/mm3 (0.1-1.0); Monocytes % 7.7 % (1.7-9.3); Neutrophils # 8.4 K/mm3 (1.8-7.8); Neutrophils % 79.8 % (37.0-80.0); Platelet Count 356 K/mm3 (142-424); Red Cell Distribution Width 15.9 % (11.5-17.5); White Blood Count 10.5 K/mm3 (4.8-10.8)
[2018-02-01 14:29] LABS: Alanine Aminotransferase 18 U/L (12-78); Albumin Level 2.9 gm/dL (3.4-5.0); Albumin/Globulin Ratio 0.6 (1.1-1.8); Alkaline Phosphatase 184 U/L (46-116); Anion Gap 12.4 mEq/L (5-15); Aspartate Amino Transferase 12 U/L (15-37); Blood Urea Nitrogen 14 mg/dL (7-18); Calcium 8.7 mg/dL (8.5-10.1); Carbon Dioxide 25 mmol/L (21.0-32.0); Chloride 103 mmol/L (98-107); Creatinine Clearance Estimated 62 mL/min (0-300); Creatinine,Serum 1.08 mg/dL (0.70-1.30); Estimated Glomerular Filt Rate 66 ml/min (>60); GFR (African American) 80 ML/MIN (>60); Globulin 4.6 gm/dl (1.3-3.2); Glucose 106 mg/dL (74-106); Potassium 3.4 mmoL/L (3.5-5.1); Sodium 137 mmol/L (136-145); Total Protein,Serum 7.5 gm/dL (6.4-8.2)
== END 2018-02-01 14:00 | disposition home or self-care (01) ==
LOC: INF 13:35
PROVIDERS: Family Provider Family Medicine; PCP Family Medicine; Visit Provider Internal Medicine Medical Oncology
DX: C18.9 Malignant neoplasm of colon, unspecified (principal)
CPT/HCPCS: 80053; 85025; J1642

== ENCOUNTER → 2018-02-02 07:15 | Outpatient (CLI) | payer MEDICARE, SELFPAY ==
--- NOTE | 2018-02-02 07:19 | US_ITS ---
US thoracentesis HISTORY: Right pleural effusion with difficulty breathing ITS.REASON: ASCITES, COLON CA ORDERING PHYSICIAN: Gulshan Winston MD PATIENT AGE: 77 years Comparison: None PROCEDURE: Following obtaining informed consent and after appropriate Time out, under aseptic conditions and local anesthesia with 1% buffered lidocaine using sonographic guidance a 4 Greek one-step catheter was inserted into the right posterior chest into the fluid collection. Approximately 1350 cc of serous fluid was drained. Post thoracentesis radiograph showed no evidence of pneumothorax. The patient tolerated the procedure well and left the radiology suite in stable condition. IMPRESSION: Successful sonographic guided thoracentesis on the right without complication
--- NOTE | 2018-02-02 09:04 | XR_ITS ---
XR chest 2V HISTORY: Pleural effusion, follow-up thoracentesis ITS.REASON: POST THORCENTESIS ORDERING PHYSICIAN: Gulshan Winston MD PATIENT AGE: 77 years COMPARISON: 01/25/2018 FINDINGS: Status post right-sided thoracentesis. There is been interval decrease in size of the right pleural effusion and compressive atelectasis. There remains a small left effusion with patchy density left lung base consistent with atelectatic changes. The patient has multiple known nodular opacities in the lungs which are below limits of resolution on the radiograph but seen on recent chest CT. Mediport catheter remains in place from left subclavian approach. No acute bony anomalies. IMPRESSION: 1. No evidence of pneumothorax. 2. Decrease in right-sided effusion status post thoracentesis. 3. Small left effusion with left basilar atelectasis
--- NOTE | 2018-02-02 11:21 | XR_ITS ---
XR chest AP HISTORY: Follow-up thoracentesis ITS.REASON: POST THOROCENTESIS X 2 HOURS ORDERING PHYSICIAN: Gulshan Winston MD PATIENT AGE: 77 years COMPARISON: 02/02/2018 FINDINGS: Status post right-sided thoracentesis. No evidence of pneumothorax. There is minimal blunting of the right CP angle. Left lower lobe atelectasis or infiltrate noted with small left effusion. Mediport catheter remains in place. IMPRESSION: No evidence of pneumothorax status post thoracentesis with small bilateral effusions and atelectasis or infiltrate in the left lower
== END ==
PROVIDERS: Family Provider Family Medicine; PCP Family Medicine; Visit Provider Internal Medicine
DX: C18.9 Malignant neoplasm of colon, unspecified (principal)
CPT/HCPCS: 32555; 71045; 71046

== ENCOUNTER 2018-02-20 10:30 | Outpatient (CLI) | payer MEDICARE, SELFPAY ==
[2018-02-20 10:35] VITALS: O2SAT 93
[2018-02-20 10:45] VITALS: BMI 22.9
[2018-02-20 10:54] LABS: Basophils % 0.5 % (0.1-2.0); Eosinophils # 0.2 K/mm3 (0.0-0.4); Eosinophils % 2.3 % (0.1-12.0); Hematocrit 35.3 % (42.0-52.0); Lymphocytes # 1.3 K/mm3 (0.7-4.5); Lymphocytes % 17.5 K/mm3 (10-50); Mean Corpuscular Hemoglobin 29.8 pg (27.0-31.2); Mean Corpuscular Volume 96.1 fl (80-94); Mean Platelet Volume 7.4 fl (7.4-10.4); Monocytes # 0.4 K/mm3 (0.1-1.0); Monocytes % 5.6 % (1.7-9.3); Neutrophils # 5.4 K/mm3 (1.8-7.8); Neutrophils % 74.1 % (37.0-80.0); Platelet Count 328 K/mm3 (142-424); Red Blood Count 3.68 M/mm3 (4.60-6.20); White Blood Count 7.3 K/mm3 (4.8-10.8)
[2018-02-20 11:12] LABS: Alanine Aminotransferase 18 U/L (12-78); Albumin Level 2.9 gm/dL (3.4-5.0); Albumin/Globulin Ratio 0.7 (1.1-1.8); Alkaline Phosphatase 151 U/L (46-116); Anion Gap 14.1 mEq/L (5-15); Aspartate Amino Transferase 15 U/L (15-37); Bilirubin,Total 0.5 mg/dL (0.2-1.0); Blood Urea Nitrogen 21 mg/dL (7-18); Calcium 8.6 mg/dL (8.5-10.1); Carbon Dioxide 26 mmol/L (21.0-32.0); Chloride 108 mmol/L (98-107); Creatinine Clearance Estimated 53 mL/min (0-300); Creatinine,Serum 1.22 mg/dL (0.70-1.30); Estimated Glomerular Filt Rate 58 ml/min (>60); GFR (African American) 70 ML/MIN (>60); Globulin 4.4 gm/dl (1.3-3.2); Glucose 123 mg/dL (74-106); Potassium 3.1 mmoL/L (3.5-5.1); Sodium 145 mmol/L (136-145); Total Protein,Serum 7.3 gm/dL (6.4-8.2)
== END 2018-02-20 10:40 | disposition home or self-care (01) ==
LOC: INF 10:44
PROVIDERS: Visit Provider Internal Medicine Medical Oncology
DX: C18.9 Malignant neoplasm of colon, unspecified (principal)
CPT/HCPCS: 80053; 85025; J1642

== ENCOUNTER → 2018-02-22 12:09 | Outpatient (CLI) | payer MEDICARE, SELFPAY ==
--- NOTE | 2018-02-22 12:14 | CA_ITS ---
CA echo PATIENT INFORMATION HEIGHT: WEIGHT: GENDER: Male B/P: 2-D/M-MODE INTERPRETATION: 2-D MEASUREMENTS OBSERVED VALUES IN CMS Right Ventricular Dimension (RVDd) Interventricular Septum (Thickness)(IVsd) Left Ventricular Internal Dimensions(LVIDd) Left Ventricular Posterior Wall (Thickness)(LVPWd) Aortic Root Aortic Cusp Separation Left Atrial Dimensions (LAD) 2D 1. Technically very difficult study, endocardial subsequent poorly visualized. 2. The left atrium is mildly enlarged, left ventricle is normal size, probably preserved left ventricular systolic function, visually estimated ejection fraction 50% with no regional wall motion abnormality, endocardial subsequent poorly visualized. 3. The right atrium and right ventricle are relatively normal size and function. 4. The aortic valve is minimally thickened and fibrosed. 5. The mitral and tricuspid valve leaflets are minimally thickened. 6. No significant pericardial effusion noted. DOPPLER INTERROGATION: Doppler interrogation of the aortic, mitral and tricuspid valvular presence of mild mitral and tricuspid regurgitation, tricuspid regurgitation jet velocity is inadequate for calculation of the right ventricular systolic pressure, grade 1 diastolic dysfunction seen with tissue Doppler evidence of raised left atrial pressure. CONCLUSION: 1. Technically difficult study because of the patient's factor and poor acoustic windows 2. Mildly enlarged left atrium, normal left ventricular size, mild concentric left ventricular hypertrophy, probably preserved left ventricular systolic function, visually estimated ejection fraction 50% with no obvious regional wall motion abnormality, grade 1 diastolic dysfunction seen with tissue Doppler evidence of raised left atrial pressure. 3. Mild mitral and tricuspid regurgitation 4. No significant pericardial effusion noted.
--- NOTE | 2018-02-22 13:18 | CT_ITS ---
CT angio chest HISTORY: Shortness of air, follow-up: Cancer ITS.REASON: COLON CANCER, SOB ORDERING PHYSICIAN: Rachelle Vásquez MD PATIENT AGE: 77 years COMPARISON: 12/01/2017 TECHNIQUE: Axial images obtained following the administration of 75 mL of Isovue 370 . Sagittal, and coronal reformatted images are also generated and reviewed. All CT scans at the facility use one or more dose reduction, viz: automated exposure control, ma/kV adjustment per patient size (including targeted exams where dose is matched to indication, i.e. head), or iterative reconstruction technique. FINDINGS: PULMONARY ARTERIES:No pulmonary embolus evident. AORTA:No acute finding. No thoracic aortic aneurysm or dissection evident. Atheromatous changes are present involving the aorta LUNGS:There are centrilobular emphysematous changes with scattered noncalcified nodular densities consistent with pulmonary metastasis which are somewhat larger on today's exam for instance, there is a 11 x 9 mm nodule in the right upper lobe laterally previously 10 x 7 mm. Is somewhat difficult to distinguish between small metastatic nodules and subpleural atelectatic changes from the pleural effusion. No bony destructive process evident. Mediport catheter is present from left subclavian approach. Upper abdominal images show a left hepatic lobe mass 5 cm similar to the previous exam of focal biliary dilatation in the left hepatic lobe. IMPRESSION: 1. Enlarging moderate-sized bilateral pleural effusion with compressive atelectatic changes. 2. No evidence of pulmonary embolus. 3. Slight progression of pulmonary metastasis. 4. No change left hepatic lobe mass with biliary dilatation PLEURAL SPACES:There are moderate size bilateral pleural effusions which is developed in the interval with compressive atelectatic changes. HEART:Unremarkable. Normal heart size. No significant pericardial effusion. MEDIASTINAL AND HILAR STRUCTURES:No mediastinal or hilar mass evident. No dominant adenopathy. BONY STRUCTURES:No acute bony abnormalities apparent LYMPH NODES:No enlarged lymph nodes evident UPPER ABDOMEN:Unremarkable IMPRESSION:
== END ==
PROVIDERS: PCP Family Medicine; Visit Provider Internal Medicine Medical Oncology
DX: R06.02 Shortness of breath (principal); C18.9 Malignant neoplasm of colon, unspecified
CPT/HCPCS: 71275; 93306; J1642; Q9967

== ENCOUNTER → 2018-02-23 10:47 | Outpatient (CLI) | payer MEDICARE, SELFPAY ==
--- NOTE | 2018-02-23 10:55 | US_ITS ---
US thoracentesis HISTORY: Pleural effusion, shortness of breath ITS.REASON: ASCITES, SOB ORDERING PHYSICIAN: Rachelle Vásquez MD PATIENT AGE: 77 years Comparison: None PROCEDURE: Following obtaining informed consent and after appropriate Time out, under aseptic conditions and local anesthesia with 1% buffered lidocaine using sonographic guidance a 4 [place] one-step catheter was inserted into the pleural space in the posterior lower hemithorax on the right. Approximately 1500 cc of Serosanguineous fluid was drained. 50 cc was sent to the lab for analysis The patient tolerated the procedure well and left the radiology suite in stable condition. The patient reported feeling better with improvement in respiration following the procedure Post thoracentesis radiograph showed no evidence of pneumothorax IMPRESSION: Successful sonographic guided thoracentesis without complication
--- NOTE | 2018-02-23 11:59 | XR_ITS ---
XR chest 2V HISTORY: Follow-up thoracentesis, pleural effusion, shortness of breath ITS.REASON: POST THORACENTESIS ORDERING PHYSICIAN: Rachelle Vásquez MD PATIENT AGE: 77 years COMPARISON: 02/02/2018 FINDINGS: Status post thoracentesis on the right with decrease in right-sided pleural effusion. No evidence of pneumothorax. The cardiovascular structures are unremarkable. Left hemidiaphragm is elevated with subpulmonic fluid on the left with patchy density in the left lower lobe consistent with atelectasis and/or infiltrate. Mediport catheter is present from left subclavian approach. IMPRESSION: 1. No evidence of pneumothorax. 2. Decrease in right effusion with persistent left pleural effusion with left basilar airspace disease
[2018-02-23 13:00] LABS: Appearance,Body Fld. Normal; RBC,Body Fluid < 10 cells/uL (< 10 X 10^3); Source, Body Fld. Pleural Fluid; TNC,Body Fluid 179 cells/uL (< 1000); Volume,Body Fld. 80 mL
[2018-02-23 14:14] LABS: Mononuclear WBCs,Body Fluid 84 %; Polynuclear WBC,Body Fluid 16 %
--- NOTE | 2018-02-23 14:36 | XR_ITS ---
XR chest 2V HISTORY: Follow-up thoracentesis ITS.REASON: POST THORACENTESIS. ORDERING PHYSICIAN: Rachelle Vásquez MD PATIENT AGE: 77 years COMPARISON: 02/23/2018 FINDINGS: Overall no significant change. No evidence of pneumothorax. Small left effusion with left basilar airspace disease once again noted. Left subclavian Mediport catheter remains in place. IMPRESSION: No change no evidence of pneumothorax. Persistent left basilar airspace disease with subpulmonic effusion on the left
[2018-02-24 18:44] LABS: LD, Body Fluid 110 IU/L (.)
== END ==
PROVIDERS: PCP Family Medicine; Visit Provider Internal Medicine Medical Oncology
DX: C18.9 Malignant neoplasm of colon, unspecified (principal); R06.02 Shortness of breath
CPT/HCPCS: 32555; 71046; 83615; 87205; 88112; 88305; 89051

== ENCOUNTER 2018-03-21 10:54 | Outpatient (CLI) | payer MEDICARE, SELFPAY ==
[2018-03-21 10:59] VITALS: BMI 23.1
[2018-03-21 11:26] LABS: Basophils % 0.3 % (0.1-2.0); Eosinophils # 0.1 K/mm3 (0.0-0.4); Eosinophils % 1.1 % (0.1-12.0); Hematocrit 36.1 % (42.0-52.0); Hemoglobin 11.1 g/dL (14.1-18.0); Lymphocytes # 1.2 K/mm3 (0.7-4.5); Lymphocytes % 16.1 % (10-50); Mean Corpuscular HGB Conc 30.8 g/dL (31.8-35.4); Mean Corpuscular Hemoglobin 30.1 pg (27.0-31.2); Mean Corpuscular Volume 97.7 fl (80-94); Mean Platelet Volume 8.4 fl (7.4-10.4); Monocytes # 0.6 K/mm3 (0.1-1.0); Monocytes % 7.4 % (1.7-9.3); Neutrophils # 5.5 K/mm3 (1.8-7.8); Neutrophils % 75.1 % (37.0-80.0); Platelet Count 279 K/mm3 (142-424); Red Blood Count 3.69 M/mm3 (4.60-6.20); Red Cell Distribution Width 20.3 % (11.5-17.5); White Blood Count 7.3 K/mm3 (4.8-10.8)
[2018-03-21 11:36] LABS: Alanine Aminotransferase 23 U/L (12-78); Albumin Level 3.1 gm/dL (3.4-5.0); Albumin/Globulin Ratio 0.8 (1.1-1.8); Alkaline Phosphatase 130 U/L (46-116); Anion Gap 12.1 mEq/L (5-15); Aspartate Amino Transferase 11 U/L (15-37); Bilirubin,Total 0.8 mg/dL (0.2-1.0); Blood Urea Nitrogen 21 mg/dL (7-18); Calcium 8.7 mg/dL (8.5-10.1); Carbon Dioxide 26 mmol/L (21.0-32.0); Chloride 108 mmol/L (98-107); Creatinine Clearance Estimated 45 mL/min (50-200); Creatinine,Serum 1.43 mg/dL (0.70-1.30); Estimated Glomerular Filt Rate 48 ml/min (>60); GFR (African American) 58 ML/MIN (>60); Globulin 4.1 gm/dl (1.3-3.2); Glucose 100 mg/dL (74-106); Potassium 3.1 mmoL/L (3.5-5.1); Sodium 143 mmol/L (136-145); Total Protein,Serum 7.2 gm/dL (6.4-8.2)
== END 2018-03-21 11:15 | disposition home or self-care (01) ==
LOC: INF 10:54
PROVIDERS: Visit Provider Internal Medicine Medical Oncology
DX: C18.9 Malignant neoplasm of colon, unspecified (principal)
CPT/HCPCS: 80053; 85025; J1642

== ENCOUNTER 2018-04-06 08:52 | Outpatient (CLI) | payer MEDICARE, SELFPAY ==
--- NOTE | 2018-04-06 | CT_ITS ---
CT abdomen pelvis w con CT abdomen pelvis w con Ordering Physician: Rachelle Vásquez MD Patient Age: 77 years: Male CLINICAL INDICATION: Follow-up metastatic colon cancer COMPARISON: CT abdomen 12/01/[address] abdomen/pelvis 01/25/2018 TECHNIQUE: 75 cc Isovue-370 IV utilized along with Redicat oral contrast Axial images obtained with sagittal and coronal reformats. All CT scans at the facility use one or more dose reduction, viz: automated exposure control, ma/kV adjustment per patient size (including targeted exams where dose is matched to indication, i.e. head), or iterative reconstruction technique.. FINDINGS: Lower thorax: Bilateral pleural effusions similar to slightly decreased versus 01/25/2018 ABDOMEN: LIVER: . Improvement of metastatic lesions since January 2018 The metastatic lesion at the left lobe of the liver has clearly decreased in size since January. Previously this lesion measureds 3 cm diameter x 3.4 cm height and January; and currently this lesion has decreased size measures 17 mm diameter x 23 mm height.. We again see the focal biliary dilatation involving the this segment of the left hepatic lobe which appears stable since January. Today's study. The other evident lesion at inferior right lobe liver has also decreased in size. It is actually best seen on the coronal image measuring up to 17 mm height today. Previously measured 25 mm height.. . There are are likely to slightly dilated ducts adjacent to this lesion, overlying the gallbladder fossa. These appear similar, if not slightly less evident Gallbladder. Appears mildly distended but and no radiopaque gallstones are evident. If there are new abdominal symptoms you may want to consider gallbladder ultrasound. Common duct appears normal diameter similar to previous studies. Pancreas stable and satisfactory. No significant pancreatic ductal dilatation Spleen. Unremarkable. Kidneys no obstruction nor calculi. Stable appearance with No acute findings Right kidney 13 mm Benign renal cyst posterior aspect lower pole. Stable. Left kidney. 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 Small segment of large bowel again noted extending through the generous ostomy abdominal wall defect. Actually this is less evident than previous study. Small bowel.. There is an abnormal loop small bowel wall thickening. This is likely jejunum and extends from the upper left abdomen down to the region of postsurgical changes at left pelvis.. Possibly reflecting post radiation changes. The patient appears to have had the bladder resected with a ileal loop version and urostomy at the right abdomen. Previously there is some generous gas in the cavity at the region of resected urinary bladder and this cavity has regressed. However there is some thickening about this area and what appears to be some free fluid at the pelvis I also particularly note what appears to be some prominent wall thickening and edema about the rectal wall. Quite edematous and there may be some fluid surrounding this area. This also again noted to be a enhancing hyperdense 2.4 cm hyperdense enhancing nodule left perirectal region. Enhancing node versus focal inflammatory feature. It does enhance and more evident than on previous study but this may be due to are delayed scan timing to this area. There is also a small 1 cm enhancing nodule at the left gluteal muscle axial image 90 noted. Possibly these are metastatic foci note: This study was dictated with a voice-recognition system. There may be typographical error is related to such. If they are significant please notify us for corrections. IMPRESSION 1..
--- NOTE | 2018-04-06 | CT_ITS ---
CT chest w con HISTORY: Follow-up metastatic disease, colon cancer ORDERING PHYSICIAN: Rachelle Vásquez MD PATIENT AGE: 77 years COMPARISON: 02/22/2018 TECHNIQUE: Axial images obtained following the administration of 75 mL of Isovue 370 . Sagittal, and coronal reformatted images are also generated and reviewed. All CT scans at the facility use one or more dose reduction, viz: automated exposure control, ma/kV adjustment per patient size (including targeted exams where dose is matched to indication, i.e. head), or iterative reconstruction technique. FINDINGS: No mediastinal or hilar mass or adenopathy. There is normal heart size with no evidence of pericardial effusion. No evidence of aortic aneurysm or central pulmonary embolus Centrilobular emphysematous changes are present with chronic coarsening of bronchovascular markings. There are medium-sized bilateral pleural effusions layering posteriorly. These effusions have slightly decreased in size. There is associated compressive atelectasis. Numerous bilateral irregular pulmonary opacities are once again noted consistent with pulmonary metastasis. Overall, these areas are not felt to be significantly changed. No obvious bony destructive process. Once again noted is a left hepatic mass with ductal dilatation of the left hepatic lobe. This lesion does appear slightly smaller at maximum dimension of 3.7 cm previously 4.7 cm. IMPRESSION: 1. Overall no change in the pulmonary nodular opacities consistent with metastatic disease. 2. Persistent but slightly improved bilateral pleural effusions 3. The left hepatic lobe mass does appear somewhat smaller
[2018-04-06 08:31] VITALS: BMI 22.4
[2018-04-06 08:54] LABS: Basophils % 0.5 % (0.1-2.0); Eosinophils # 0.1 K/mm3 (0.0-0.4); Eosinophils % 1.8 % (0.1-12.0); Hematocrit 35.6 % (42.0-52.0); Hemoglobin 11.5 g/dL (14.1-18.0); Lymphocytes # 1.2 K/mm3 (0.7-4.5); Lymphocytes % 22.1 % (10-50); Mean Corpuscular HGB Conc 32.2 g/dL (31.8-35.4); Mean Corpuscular Hemoglobin 31.4 pg (27.0-31.2); Mean Corpuscular Volume 97.6 fl (80-94); Monocytes # 0.4 K/mm3 (0.1-1.0); Monocytes % 7.1 % (1.7-9.3); Neutrophils # 3.6 K/mm3 (1.8-7.8); Neutrophils % 68.6 % (37.0-80.0); Platelet Count 282 K/mm3 (142-424); Red Blood Count 3.65 M/mm3 (4.60-6.20); Red Cell Distribution Width 21.3 % (11.5-17.5); White Blood Count 5.3 K/mm3 (4.8-10.8)
[2018-04-06 09:06] LABS: Alanine Aminotransferase 22 U/L (12-78); Albumin Level 3.4 gm/dL (3.4-5.0); Albumin/Globulin Ratio 0.8 (1.1-1.8); Alkaline Phosphatase 120 U/L (46-116); Anion Gap 13.5 mEq/L (5-15); Aspartate Amino Transferase 13 U/L (15-37); Bilirubin,Total 1.2 mg/dL (0.2-1.0); Blood Urea Nitrogen 22 mg/dL (7-18); Calcium 8.6 mg/dL (8.5-10.1); Carbon Dioxide 24 mmol/L (21.0-32.0); Chloride 107 mmol/L (98-107); Creatinine Clearance Estimated 48 mL/min (50-200); Creatinine,Serum 1.31 mg/dL (0.70-1.30); Estimated Glomerular Filt Rate 53 ml/min (>60); GFR (African American) 64 ML/MIN (>60); Globulin 4.1 gm/dl (1.3-3.2); Glucose 100 mg/dL (74-106); Potassium 3.5 mmoL/L (3.5-5.1); Sodium 141 mmol/L (136-145); Total Protein,Serum 7.5 gm/dL (6.4-8.2)
--- NOTE | 2018-04-06 10:02 | HMH.ITSHM ---
Current Home Medications as stated by this patient Wes Mobley or technical account representative. []XELODA
== END 2018-04-06 10:11 | disposition home or self-care (01) ==
LOC: INF 08:53
PROVIDERS: PCP Family Medicine; Visit Provider Internal Medicine Medical Oncology
DX: C18.9 Malignant neoplasm of colon, unspecified (principal)
CPT/HCPCS: 71260; 74177; 80053; 85025; J1642; Q9967

== ENCOUNTER 2018-05-23 10:57 | Outpatient (CLI) | payer MEDICARE, SELFPAY ==
[2018-05-23 10:59] VITALS: BMI 21.4
[2018-05-23 11:22] LABS: Basophils % 0.5 % (0.1-2.0); Eosinophils # 0.1 K/mm3 (0.0-0.4); Eosinophils % 1.4 % (0.1-12.0); Hematocrit 36.9 % (42.0-52.0); Hemoglobin 11.2 g/dL (14.1-18.0); Lymphocytes # 0.7 K/mm3 (0.7-4.5); Lymphocytes % 12.8 % (10-50); Mean Corpuscular HGB Conc 30.3 g/dL (31.8-35.4); Mean Corpuscular Hemoglobin 30.1 pg (27.0-31.2); Mean Corpuscular Volume 99.4 fl (80-94); Monocytes # 0.4 K/mm3 (0.1-1.0); Monocytes % 6.1 % (1.7-9.3); Neutrophils # 4.6 K/mm3 (1.8-7.8); Neutrophils % 79.3 % (37.0-80.0); Platelet Count 292 K/mm3 (142-424); Red Blood Count 3.72 M/mm3 (4.60-6.20); Red Cell Distribution Width 18.1 % (11.5-17.5); White Blood Count 5.8 K/mm3 (4.8-10.8)
[2018-05-23 11:36] LABS: Alanine Aminotransferase 17 U/L (12-78); Albumin Level 2.9 gm/dL (3.4-5.0); Albumin/Globulin Ratio 0.7 (1.1-1.8); Alkaline Phosphatase 179 U/L (46-116); Aspartate Amino Transferase 13 U/L (15-37); Bilirubin,Total 0.8 mg/dL (0.2-1.0); Blood Urea Nitrogen 23 mg/dL (7-18); Calcium 8.7 mg/dL (8.5-10.1); Carbon Dioxide 28 mmol/L (21.0-32.0); Chloride 108 mmol/L (98-107); Creatinine Clearance Estimated 47 mL/min (50-200); Creatinine,Serum 1.27 mg/dL (0.70-1.30); Estimated Glomerular Filt Rate 55 ml/min (>60); GFR (African American) 67 ML/MIN (>60); Globulin 4.3 gm/dl (1.3-3.2); Glucose 111 mg/dL (74-106); Sodium 144 mmol/L (136-145); Total Protein,Serum 7.2 gm/dL (6.4-8.2)
== END 2018-05-23 11:23 | disposition home or self-care (01) ==
LOC: INF 10:57
PROVIDERS: Visit Provider Internal Medicine Medical Oncology
DX: Z45.2 Encounter for adjustment and management of vascular access device (principal); C18.9 Malignant neoplasm of colon, unspecified
CPT/HCPCS: 80053; 85025; J1642

== ENCOUNTER → 2018-05-24 10:48 | Outpatient (CLI) | payer MEDICARE, SELFPAY ==
--- NOTE | 2018-05-24 11:06 | XR_ITS ---
XR chest 2V HISTORY: Colon cancer, shortness of breath ITS.REASON: COLON CA ORDERING PHYSICIAN: Rachelle Vásquez MD PATIENT AGE: 77 years COMPARISON: 02/23/2018 FINDINGS: Unremarkable cardiovascular structures. Left subclavian Mediport catheter remains in place with the tip in region superior vena cava. There is biapical pleural thickening. There are small bilateral pleural effusions. No lobar consolidation or collapse is evident. No acute bony anomalies. IMPRESSION: Small bilateral pleural effusions. The right effusion is reaccumulated since the previous study of 02/23/2018. The left effusion may be slightly larger well.
== END ==
PROVIDERS: PCP Family Medicine; Visit Provider Internal Medicine Medical Oncology
DX: C61 Malignant neoplasm of prostate (principal)
CPT/HCPCS: 71046

== ENCOUNTER → 2018-05-25 10:01 | Outpatient (CLI) | payer MEDICARE, SELFPAY ==
--- NOTE | 2018-05-25 10:10 | US_ITS ---
US thoracentesis HISTORY: Pleural effusions with trouble breathing, history of lung and colon cancer ITS.REASON: COLON CA,ASCITES ORDERING PHYSICIAN: Rachelle Vásquez MD PATIENT AGE: 77 years Comparison: None PROCEDURE: Following obtaining informed consent and after appropriate Time out, under aseptic conditions and local anesthesia with 1% buffered lidocaine using sonographic guidance a 4 [place] one-step catheter was inserted into the right pleural space in the posterior axillary line inferiorly. Approximately 1600 cc of Serosanguineous fluid was drained. The patient tolerated the procedure well and left the radiology suite in stable condition. IMPRESSION: Successful sonographic guided paracentesis without complication Postthoracentesis radiograph showed no evidence of pneumothorax
--- NOTE | 2018-05-25 11:04 | XR_ITS ---
XR chest 2V HISTORY: ITS.REASON: POST THORACENTESIS ORDERING PHYSICIAN: Rachelle Vásquez MD PATIENT AGE: 77 years COMPARISON: 05/24/2018 FINDINGS: Status post right sided thoracentesis. No evidence of pneumothorax. There is been interval decrease in size of the right pleural effusion. There are mild atelectatic changes in the left lower lobe. Mediport catheter remains in place. IMPRESSION: Status post right-sided thoracentesis with decrease in size of effusion and no evidence of pneumothorax
--- NOTE | 2018-05-25 13:05 | XR_ITS ---
XR chest 2V HISTORY: Follow-up thoracentesis ITS.REASON: POST THOROCENTESISI ORDERING PHYSICIAN: Rachelle Vásquez MD PATIENT AGE: 77 years COMPARISON: 05/25/2018 FINDINGS: Status post thoracentesis. No evidence of pneumothorax. Small bilateral effusions persist. The right effusion has decreased in size compared to 05/24/2018. Patchy density is present in both lower lobes. The study is however performed in expiration. This may be due to areas of atelectasis versus patchy infiltrate. Mediport catheter remains in place. IMPRESSION: No evidence of pneumothorax with small bilateral effusions with patchy airspace disease in both lower lobes.
== END ==
PROVIDERS: PCP Family Medicine; Visit Provider Internal Medicine Medical Oncology
DX: R18.8 Other ascites (principal); C18.9 Malignant neoplasm of colon, unspecified
CPT/HCPCS: 32555; 71046

== ENCOUNTER → 2018-06-11 12:09 | Outpatient (CLI) | payer MEDICARE, SELFPAY ==
--- NOTE | 2018-06-11 | XR_ITS ---
XR chest 2V HISTORY: ..: Immediate POST THORACENTESIS ORDERING PHYSICIAN: Rachelle Vásquez MD PATIENT AGE: 77 years Technique: 3 view chest ... PA and lateral chest inspiration .... Additional PA chest expiration COMPARISON: 03-11 PA and lateral CXR CXR. But also May 25, 2017 CXR FINDINGS: Underlying COPD and chronic changes. Port-A-Cath enters from the left subclavian approach, with tip at SVC. Right chest. The studies performed immediately after performing right chest thoracentesis. Both inspiration and expiration PA chest performed with this set of images.. No evidence of pneumothorax, following the procedure. Majority of pleural fluid is been removed with only scant residual pleural fluid at the right base and blunting right CP angle and along the lateral lower chest. Left chest.: there is a small left pleural effusion which is increased since May 25. Very Minimal airspace disease at left left lung base appearance may reflecting minimal atelectasis and scarring here at left lung base. IMPRESSION. ..... 1. Right chest: . No Pneumothorax on right following the thoracentesis.-Total of 1560 cc removed from right chest. Only scant residual pleural fluid right chest. Right lung has reexpanded with minimal atelectasis right base. 2. Left chest: . Small left pleural effusion . Has increased since February and May 25, 2018 CXR 3. COPD & Chronic lung changes bilaterally again noted Mild bibasilar disease mainly reflects atelectasis and scarring
--- NOTE | 2018-06-11 12:19 | US_ITS ---
US thoracentesis Ordering Physician: Rachelle Vásquez MD Patient Age: 77 years: Male HISTORY: COLON CA, SOB recurrentpleural effusion ....... FINDINGS AND PROCEDURE: ... ULTRASOUND-GUIDED THORACENTESIS right chest Ultrasound Chest: Prior to the procedure ultrasound scanning was performed. Right chest. The prominent pleural effusion was identified and site for optimal thoracentesis was determined. ... Scanning by technologist STEW & Dr. Feng Ultrasound-guided thoracentesis was then performed. . After identifying the the optimal site for entry, and general site prepped, Dr. Feng then performed sterile preparation as well as local skin, and cautious deeper placement of Xylocaine anesthetic . The thoracentesis needle was advanced, fluid was encountered. A total of 1560 cc of eileen fluid obtained from right chest. Without difficulty Patient tolerated procedure well. IMPRESSION: Ultrasound and desiccation and localization of pleural fluid performed. Thereafter thoracentesis was performed removing a total of 1560 cc of fluid from right chest patient tolerated procedure well.
--- NOTE | 2018-06-11 14:59 | XR_ITS ---
XR chest AP HISTORY: : POST 2 HOUR THORACENTESIS CXR ORDERING PHYSICIAN: Rachelle Vásquez MD PATIENT AGE: 77 years Technique: PA chest only. Inspiration COMPARISON: PA and lateral chest from 2 hours earlier. Underlying COPD and chronic changes. Port-A-Cath enters from the left subclavian approach, with tip at SVC. Right chest. The studies performed 2 hours after right chest thoracentesis. Inspiration chest only on this study. No pneumothorax. Majority of pleural fluid is been removed with only scant residual pleural fluid at the right base and blunting right CP angle and along the lateral lower chest. Left chest.: there is a small left pleural effusion which is increased since May 25. Very Minimal airspace disease at left left lung base appearance may reflecting minimal atelectasis and scarring here at left lung base. IMPRESSION. ..... 1. Right chest: . No Pneumothorax on right 2 hours following thoracentesis..Patient was discharged -Total of 1560 cc removed from right chest. . Only scant residual pleural fluid right chest. Right lung has reexpanded with minimal atelectasis right base. 2. Left chest: . Small left pleural effusion . Which Has increased since February & May 25, 2018 CXR 3. COPD & Chronic lung changes bilaterally again noted Mild bibasilar disease mainly reflects atelectasis and scarring
== END ==
PROVIDERS: PCP Family Medicine; Visit Provider Internal Medicine Medical Oncology
DX: C18.9 Malignant neoplasm of colon, unspecified (principal); R06.02 Shortness of breath
CPT/HCPCS: 32555; 71045; 71046

== ENCOUNTER 2018-06-13 11:32 | Outpatient (CLI) | payer MEDICARE, SELFPAY ==
[2018-06-13 11:32] VITALS: BMI 20.7
[2018-06-13 12:15] LABS: Alanine Aminotransferase 17 U/L (12-78); Albumin Level 2.5 gm/dL (3.4-5.0); Albumin/Globulin Ratio 0.6 (1.1-1.8); Alkaline Phosphatase 194 U/L (46-116); Anion Gap 8.6 mEq/L (5-15); Aspartate Amino Transferase 9 U/L (15-37); Bilirubin,Total 0.6 mg/dL (0.2-1.0); Blood Urea Nitrogen 22 mg/dL (7-18); Calcium 8.6 mg/dL (8.5-10.1); Carbon Dioxide 31 mmol/L (21.0-32.0); Chloride 105 mmol/L (98-107); Creatinine Clearance Estimated 50 mL/min (50-200); Creatinine,Serum 1.17 mg/dL (0.70-1.30); Estimated Glomerular Filt Rate 61 ml/min (>60); GFR (African American) 73 ML/MIN (>60); Globulin 4.3 gm/dl (1.3-3.2); Glucose 127 mg/dL (74-106); Potassium 3.6 mmoL/L (3.5-5.1); Sodium 141 mmol/L (136-145); Total Protein,Serum 6.8 gm/dL (6.4-8.2)
[2018-06-13 12:26] LABS: Basophils % 0.3 % (0.1-2.0); Eosinophils # 0.1 K/mm3 (0.0-0.4); Eosinophils % 0.8 % (0.1-12.0); Hematocrit 39.2 % (42.0-52.0); Hemoglobin 12.9 g/dL (14.1-18.0); Lymphocytes # 0.9 K/mm3 (0.7-4.5); Lymphocytes % 10.8 % (10-50); Mean Corpuscular HGB Conc 32.8 g/dL (31.8-35.4); Mean Corpuscular Hemoglobin 33.1 pg (27.0-31.2); Mean Corpuscular Volume 100.9 fl (80-94); Mean Platelet Volume 8.1 fl (7.4-10.4); Monocytes # 0.5 K/mm3 (0.1-1.0); Monocytes % 6.7 % (1.7-9.3); Neutrophils # 6.5 K/mm3 (1.8-7.8); Neutrophils % 81.4 % (37.0-80.0); Platelet Count 257 K/mm3 (142-424); Red Blood Count 3.88 M/mm3 (4.60-6.20); Red Cell Distribution Width 17.8 % (11.5-17.5)
== END 2018-06-13 11:55 | disposition home or self-care (01) ==
LOC: INF 11:32
PROVIDERS: Visit Provider Internal Medicine Medical Oncology
DX: Z45.2 Encounter for adjustment and management of vascular access device (principal); C18.9 Malignant neoplasm of colon, unspecified
CPT/HCPCS: 80053; 85025; J1642

== ENCOUNTER 2018-06-29 08:50 | Outpatient (CLI) | payer MEDICARE, SELFPAY ==
[2018-06-29 08:33] VITALS: BMI 21.1
[2018-06-29 08:55] LABS: Basophils % 0.3 % (0.1-2.0); Eosinophils % 0.4 % (0.1-12.0); Hematocrit 39.6 % (42.0-52.0); Hemoglobin 12.7 g/dL (14.1-18.0); Lymphocytes % 14.4 % (10-50); Mean Corpuscular Hemoglobin 32.2 pg (27.0-31.2); Mean Corpuscular Volume 100.6 fl (80-94); Mean Platelet Volume 7.9 fl (7.4-10.4); Monocytes # 0.4 K/mm3 (0.1-1.0); Monocytes % 5.8 % (1.7-9.3); Neutrophils # 5.6 K/mm3 (1.8-7.8); Neutrophils % 79.1 % (37.0-80.0); Platelet Count 309 K/mm3 (142-424); Red Blood Count 3.94 M/mm3 (4.60-6.20); Red Cell Distribution Width 18.5 % (11.5-17.5); White Blood Count 7.1 K/mm3 (4.8-10.8)
[2018-06-29 09:06] LABS: Alanine Aminotransferase 18 U/L (12-78); Albumin Level 2.8 gm/dL (3.4-5.0); Albumin/Globulin Ratio 0.6 (1.1-1.8); Alkaline Phosphatase 181 U/L (46-116); Aspartate Amino Transferase 7 U/L (15-37); Bilirubin,Total 0.9 mg/dL (0.2-1.0); Blood Urea Nitrogen 20 mg/dL (7-18); Carbon Dioxide 27 mmol/L (21.0-32.0); Chloride 101 mmol/L (98-107); Creatinine Clearance Estimated 47 mL/min (50-200); Creatinine,Serum 1.24 mg/dL (0.70-1.30); Estimated Glomerular Filt Rate 57 ml/min (>60); GFR (African American) 68 ML/MIN (>60); Globulin 4.6 gm/dl (1.3-3.2); Glucose 111 mg/dL (74-106); Sodium 135 mmol/L (136-145); Total Protein,Serum 7.4 gm/dL (6.4-8.2)
--- NOTE | 2018-06-29 09:12 | CT_ITS ---
CT abdomen pelvis w con CLINICAL INDICATION: Follow-up metastatic rectal cancer ITS.REASON: RENAL CANCER ORDERING PHYSICIAN: Rachelle Vásquez MD PATIENT AGE: 78 years COMPARISON: 04/06/2018 TECHNIQUE: Axial images obtained with sagittal and coronal reformats. All CT scans at the facility use one or more dose reduction, viz: automated exposure control, ma/kV adjustment per patient size (including targeted exams where dose is matched to indication, i.e. head), or iterative reconstruction technique. PROCEDURE: Oral Contrast: Redicat IV Contrast: 75 mL is Optiray 350 performed in conjunction with the chest CT. FINDINGS: Please see chest CT for lung base description. There is some nodularity along the left aspect of the pericardium anteriorly at 15 mm and could be related to pericardial implant or lymph node. The isodensity in medial segment left hepatic lobe appear somewhat less bulky at 20 x 18 mm previously 24 x 20 mm. Persistent biliary dilatation noted in this segment. Isodensity in the right hepatic lobe inferiorly not significant changed at 16 mm. There is a nodular density along the posterior aspect of the right hepatic lobe at 15 x 11 mm not significant change and may be due to a metastatic pleural implant.. Spleen, pancreas, and right adrenal gland are unremarkable. Left adrenal gland is somewhat enlarged but not significant changed maintaining an adreniform shape. No change small bilateral renal cysts. There is been extensive abdominal surgery with left lower quadrant colostomy and right lower quadrant ileal loop. No bowel obstruction. There is moderate amount of retained colonic feces. Pelvic cavity is noted with extensive postsurgical changes. There is an enhancing nodule in the left pelvic cavity 2.6 x 2 cm. This appears slightly more bulky previously 2.4 x 1.9 cm. No bony destructive process evident. IMPRESSION: 1. Hepatic metastasis is once again noted. The left hepatic lobe lesion may be slightly smaller. 2. Mildly enlarged left adrenal gland unchanged from prior study possibly due to metastatic lesion. 3. No change probable pleural implant. Nodular density along the left aspect of the pericardium anteriorly which may related to a pericardial implant or enlarged lymph node not significant changed 4. Extensive bowel surgery as described above with persistent cavity within the pelvis and enlarging left pelvic cavity nodule which may be due to local recurrence of neoplasm
--- NOTE | 2018-06-29 09:13 | CT_ITS ---
CT chest w con HISTORY: Follow-up metastatic rectal cancer ITS.REASON: RENAL CANCER ORDERING PHYSICIAN: Rachelle Vásquez MD PATIENT AGE: 78 years COMPARISON: 03/27/2018 TECHNIQUE: Axial images obtained following the administration of 75 mL of Optiray 350 . Sagittal, and coronal reformatted images are also generated and reviewed. All CT scans at the facility use one or more dose reduction, viz: automated exposure control, ma/kV adjustment per patient size (including targeted exams where dose is matched to indication, i.e. head), or iterative reconstruction technique. FINDINGS: There is a 10 mm nodule within the left lobe of the thyroid gland unchanged. There is prominence of the tracheobronchial tree. No central obstructing lesion. No mediastinal or hilar mass. There are a few small mediastinal lymph nodes which are not significantly changed measuring up to 1 cm in short axis. No evidence of aortic aneurysm or dissection pulmonary embolus There are scattered noncalcified pulmonary nodules which remain the most part not significantly changed. One small nodule present in the left upper lobe appears slightly larger at 6 mm previously 5 mm. The difference could be due to slice orientation artifact. There are bilateral pleural effusions slightly smaller on the right is slightly larger on the left. Along the right hemidiaphragm there is some nodularity posteriorly measuring 9 mm and may be due to pleural metastatic focus not significant change. No bony destructive process. IMPRESSION: 1. Overall no significant change in the multiple pulmonary nodular opacities and pleural nodular opacities consistent with metastatic disease. 2. Right pleural effusion is slightly smaller left pleural effusion is slightly larger.
== END 2018-06-29 09:50 | disposition home or self-care (01) ==
LOC: INF 08:50
PROVIDERS: PCP Family Medicine; Visit Provider Internal Medicine Medical Oncology
DX: C18.9 Malignant neoplasm of colon, unspecified (principal)
CPT/HCPCS: 71260; 74177; 80053; 85025; J1642; Q9967

== ENCOUNTER → 2018-07-02 12:33 | Outpatient (CLI) | payer MEDICARE, SELFPAY ==
--- NOTE | 2018-07-02 12:48 | US_ITS ---
US thoracentesis HISTORY: Enlarged left pleural effusion with shortness of breath ITS.REASON: COLON CA,SOB ORDERING PHYSICIAN: Rachelle Vásquez MD PATIENT AGE: 78 years Comparison: 07/02/2018 PROCEDURE: Following obtaining informed consent and after appropriate Time out, under aseptic conditions and local anesthesia with 1% buffered lidocaine using sonographic guidance a 4 Portuguese one-step catheter was inserted into the left pleural space in the posterior axillary line inferiorly. Approximately 1500 cc of Serosanguineous fluid was drained. The patient tolerated the procedure well and left the radiology suite in stable condition. IMPRESSION: Successful sonographic guided paracentesis without complication Postthoracentesis radiographs showed no evidence of pneumothorax
--- NOTE | 2018-07-02 13:43 | XR_ITS ---
XR chest 2V HISTORY: Follow-up thoracentesis ITS.REASON: POST THOROCENTESIS ORDERING PHYSICIAN: Rachelle Vásquez MD PATIENT AGE: 78 years COMPARISON: 06/11/2018 FINDINGS: Status post left-sided thoracentesis with interval decrease in size of the left pleural effusion. No obvious pneumothorax. Right-sided pleural effusion noted. There are atelectatic changes in both lung bases. Left subclavian Mediport catheter is in place. IMPRESSION: 1. Heart decrease in size of left pleural effusion status post thoracentesis. No evidence of pneumothorax. 2. Residual right pleural effusion with bilateral lower lobe atelectatic changes
--- NOTE | 2018-07-02 15:25 | XR_ITS ---
XR chest 2V HISTORY: ITS.REASON: F/U POST THOROCENTSIS ORDERING PHYSICIAN: Rachelle Vásquez MD PATIENT AGE: 78 years COMPARISON: 07/02/2018 FINDINGS: PA and lateral views of the chest performed following left thoracentesis shows no evidence of pneumothorax. There is some small residual pleural effusion on the left with atelectatic changes in the left lower lobe. Medium-sized right pleural effusion with atelectasis once again noted. Mediport catheter remains in place. There is bi apical pleural thickening IMPRESSION: No evidence of pneumothorax status post thoracentesis. No change bilateral lower lobe atelectatic changes with right pleural effusion
== END ==
PROVIDERS: PCP Family Medicine; Visit Provider Internal Medicine Medical Oncology
DX: R06.02 Shortness of breath (principal); C18.9 Malignant neoplasm of colon, unspecified
CPT/HCPCS: 32555; 71046

== ENCOUNTER → 2018-07-12 10:41 | Outpatient (CLI) | payer MEDICARE, SELFPAY ==
--- NOTE | 2018-07-12 10:47 | US_ITS ---
US thoracentesis HISTORY: Colon cancer, pleural effusions, shortness of breath ITS.REASON: COLON CA, ASCITES ORDERING PHYSICIAN: Rachelle Vásquez MD PATIENT AGE: 78 years Comparison: 07/12/2018 PROCEDURE: Ultrasound initially performed of the chest showing medium-size bilateral effusions. The effusion is larger on the right on the radiograph therefore, that was the side that was marked for thoracentesis in the posterior axillary line. Following obtaining informed consent and after appropriate Time out, under aseptic conditions and local anesthesia with 1% buffered lidocaine using sonographic guidance a 4 Portuguese one-step catheter was inserted into the right-sided effusion. Approximately 1500 of Serosanguineous fluid was drained. The patient tolerated the procedure well and left the radiology suite in stable condition. Post thoracentesis radiograph showed decrease in size of right effusion with no evidence of pneumothorax IMPRESSION: Successful sonographic guided thoracentesis without complication
--- NOTE | 2018-07-12 11:43 | XR_ITS ---
XR chest 2V HISTORY: Shortness of breath, colon cancer ITS.REASON: COLON CANCER ORDERING PHYSICIAN: Rachelle Vásquez MD PATIENT AGE: 78 years COMPARISON: 07/12/2018 FINDINGS: Unremarkable cardiovascular structures. Left subclavian Mediport catheter remains in place. There is a small right pleural effusion which is slightly increased in size compared to the previous exam with some atelectatic changes in the right lung base. Small left effusion also noted and has slightly increased in size with atelectasis in the left lower lobe. IMPRESSION: Small bilateral pleural effusions which have slightly increased in size with atelectatic changes of the lung bases
--- NOTE | 2018-07-12 12:54 | XR_ITS ---
XR chest 2V HISTORY: Follow-up thoracentesis ITS.REASON: S/P THOROCENTESIS ORDERING PHYSICIAN: Rachelle Vásquez MD PATIENT AGE: 78 years COMPARISON: 07/12/2018 FINDINGS: There is been interval decrease in size of the right-sided pleural effusion. No evidence of pneumothorax. Some mild pleural thickening in the right lung base laterally. Small left effusion with left basilar atelectasis is noted. Mild biapical pleural thickening present. IMPRESSION: Decrease in size of right pleural effusion with no evidence of pneumothorax
--- NOTE | 2018-07-12 14:51 | XR_ITS ---
XR chest 2V 1458 hours HISTORY: Follow-up thoracentesis ITS.REASON: S/P THORACENTESIS ORDERING PHYSICIAN: Rachelle Vásquez MD PATIENT AGE: 78 years COMPARISON: 07/12/2018 FINDINGS: Overall no significant change. Small left pleural effusion with mild left basilar atelectasis. Smaller right effusion with mild atelectasis or infiltrate in the right lung base. There is some increased density in the right lung base which has developed from the study 2 hours earlier. No evidence of pneumothorax. Mediport catheter remains in place. 9 mm opacity is noted in the right upper lobe and may represent a developing pulmonary nodule. IMPRESSION: 1. No evidence of right-sided pneumothorax status post thoracentesis. 2. Patchy airspace disease right lung base. 3. Small left effusion with left basilar atelectasis. 4. Possible 9 mm nodule right upper lobe
== END ==
PROVIDERS: PCP Family Medicine; Visit Provider Internal Medicine Medical Oncology
DX: C18.9 Malignant neoplasm of colon, unspecified (principal); J90 Pleural effusion, not elsewhere classified; R06.02 Shortness of breath
CPT/HCPCS: 32555; 71046

== ENCOUNTER → 2018-07-26 10:39 | Outpatient (CLI) | payer MEDICARE, SELFPAY ==
--- NOTE | 2018-07-26 10:41 | US_ITS ---
thoracentesis Ordering Physician: Rachelle Vásquez MD Patient Age: 78 years: Male HISTORY: ITS.REASON: Pleural effusions bilateral TECHNIQUE: Ultrasound chest bilateral with attention left chest. Ultrasound localization for thoracentesis FINDINGS AND PROCEDURE: ------- ------ ULTRASOUND chest; imaging performed of both the lower right and left chest posteriorly demonstrated generous pleural effusions bilaterally. Since the prior thoracentesis was performed on the right we performed today's thoracentesis on the left. -------- ULTRASOUND-GUIDED thoracentesis left chest Following sterile preparation as well as local skin, and cautious deeper placement of Xylocaine anesthetic . .. The optimal site for thoracentesis was localized patient's left back back at between left lower ribs. Scanning was performed by Dr. Feng as well as technologist ANTIONE &/MW Following sterile preparation and local skin anesthesia a small 2-3 mm charles was made in the skin through which the thoracentesis needle was placed. A total of nearly 900 cc of pleural fluid was drained from the left chest. Patient tolerated procedure well. The subsequent chest films showed no appreciable pneumothorax. IMPRESSION: Using ultrasound localization thoracentesis left chest was performed . 900 cc removed from the left chest . Patient tolerated procedure well
--- NOTE | 2018-07-26 12:37 | XR_ITS ---
XR chest AP HISTORY: Lung cancer with recurring pleural effusions ORDERING PHYSICIAN: Rachelle Vásquez MD PATIENT AGE: 78 years Technique: Upright expiration PA chest COMPARISON: Chest film 07/12/2018 FINDINGS:. This study performed immediately following the patient's LEFT thoracentesis. No pneumothorax . 900 cc pleural fluid removed from the left chest. Minimal residual pleural fluid remaining at the lower left chest with blunting left CP angle. . Linear scarring] & atelectasis at the left base Compared to previous study there is slight increased pleural fluid right chest. Small pleural effusion is seen here.. Underlying COPD and chronic changes. Port-A-Cath overlies left chest with tip at SVC. Unchanged. Heart normal size. Hilar regions generous but stable. IMPRESSION 1..... Postthoracentesis immediate CXR- No pneumothorax. ... 900 cc removed from left chest. Small residual left pleural effusion with minimal blunting left CP angle 2.. Small right pleural effusion has increased since June radiograph CXR. . Appeared more evident on ultrasound 3. Underlying COPD. And chronic changes
--- NOTE | 2018-07-26 12:38 | XR_ITS ---
XR chest 2V HISTORY: ITS.REASON: INSPIRATION AND EXPIRATION ... AFTER DR BALDWIN APPT. ORDERING PHYSICIAN: Rachelle Baldwin MD PATIENT AGE: 78 years Technique: Inspiration and expiration PA chest 2.5 hours following LEFT thoracentesis COMPARISON: July 12, 2018 as well as chest film at earlier today at 12:30 FINDINGS: Left chest. Studies performed 2.5 hours after patient's LEFT thoracentesis. No pneumothorax. . 900 cc pleural fluid removed from the left chest. Minimal residual pleural fluid remaining at the lower left chest with blunting left CP angle. . Linear scarring] & atelectasis at the left base Right chest Compared to previous July 12, 2018 CXR study there is increased pleural fluid right chest. Small pleural effusion is seen here blunting CP angle and extending along the right chest wall and right lung base. Slight additional density right base... Underlying COPD and chronic changes. Port-A-Cath overlies left chest with tip at SVC. Unchanged. Heart normal size. Hilar regions generous but stable. IMPRESSION 2.5 hour Delayed Postthoracentesis chest -No pneumothorax. (900 cc removed from the left chest just after 12 noon)) Smaller left pleural effusion remains with blunting left CP angle Reaccumulating small right pleural effusion has increased since since June radiograph CXR. Underlying COPD. & chronic changes again noted
== END ==
PROVIDERS: PCP Family Medicine; Visit Provider Internal Medicine Medical Oncology
DX: R18.8 Other ascites (principal); C18.9 Malignant neoplasm of colon, unspecified
CPT/HCPCS: 32555; 71045; 71046

== ENCOUNTER → 2018-08-01 12:00 | Outpatient (CLI) | payer MEDICARE, SELFPAY ==
--- NOTE | 2018-08-01 12:25 | US_ITS ---
US thoracentesis HISTORY: Pleural effusion, shortness of breath, labored breathing ITS.REASON: Pleural effusion ORDERING PHYSICIAN: Rachelle Vásquez MD PATIENT AGE: 78 years Comparison: None PROCEDURE: Following obtaining informed consent and after appropriate Time out, under aseptic conditions and local anesthesia with 1% buffered lidocaine using sonographic guidance a 4 Slovak one-step catheter was inserted into the posterior right lower thorax within pleural localized by ultrasound pleural. Approximately 1100 of Serosanguineous fluid was drained. The patient tolerated the procedure well and left the radiology suite in stable condition. A post thoracentesis radiograph showed no evidence of pneumothorax IMPRESSION: Successful sonographic guided thoracentesis on the right without complication
--- NOTE | 2018-08-01 13:24 | XR_ITS ---
XR chest 2V HISTORY: Follow-up thoracentesis ITS.REASON: POST THOROCENTESIS ORDERING PHYSICIAN: Rachelle Vásquez MD PATIENT AGE: 78 years COMPARISON: 07/26/2018 FINDINGS: The cardiomediastinal silhouette and pulmonary vascularity are within normal limits. Patient has had a right-sided thoracentesis with decrease in size of the right pleural effusion compared to the previous exam. No evidence of pneumothorax. Small left effusion, trace right effusion, and bilateral lower lobe fibrotic changes are once again noted. Mediport catheter remains in place. IMPRESSION: Decrease in size of right pleural effusion without evidence of pneumothorax. Increase in size of left pleural effusion with bibasilar atelectasis/fibrosis
== END ==
PROVIDERS: PCP Family Medicine; Visit Provider Internal Medicine Medical Oncology
DX: R18.8 Other ascites (principal); C18.9 Malignant neoplasm of colon, unspecified; J90 Pleural effusion, not elsewhere classified; Z87.891 Personal history of nicotine dependence
CPT/HCPCS: 32555; 71046

== ENCOUNTER → 2018-08-08 12:43 | Outpatient (CLI) | payer MEDICARE, SELFPAY ==
--- NOTE | 2018-08-08 12:46 | US_ITS ---
US thoracentesis HISTORY: Chronic recurrent Pleural effusion, difficulty breathing ITS.REASON: ASCITES ORDERING PHYSICIAN: Rachelle Vásquez MD PATIENT AGE: 78 years Comparison: None PROCEDURE: Following obtaining informed consent and after appropriate Time out, under aseptic conditions and local anesthesia with 1% buffered lidocaine using sonographic guidance a 4 Guinean one-step catheter was inserted into the posterior axillary line on the left inferiorly under ultrasound guidance within the left-sided pleural effusion. Approximately 1500 of Serosanguineous fluid was drained. The patient tolerated the procedure well and left the radiology suite in stable condition. Post procedure radiograph showed no evidence of pneumothorax. The patient did notice some improvement in breathing. IMPRESSION: Successful sonographic guided left-sided thoracentesis without complication
[2018-08-08 15:15] VITALS: BMI 19.8
--- NOTE | 2018-08-08 15:16 | XR_ITS ---
XR chest 2V HISTORY: ITS.REASON: POST THOROCENTESIS F/U ORDERING PHYSICIAN: Rachelle Vásquez MD PATIENT AGE: 78 years COMPARISON: 08/01/2018 FINDINGS: The cardiomediastinal silhouette and pulmonary vascularity are within normal limits. Status post left-sided thoracentesis with interval decrease in size of left-sided pleural effusion. There is COPD with small bilateral pleural effusions. Scattered parenchymal opacities are present in the right lower lobe and right upper lobe with some consolidation noted in the left lower lobe. Mediport catheter remains in place by left subclavian approach. IMPRESSION: 1. No evidence of pneumothorax status post thoracentesis. 2. Small bilateral pleural effusions with scattered parenchymal opacities and left lower lobe consolidation
== END ==
PROVIDERS: PCP Family Medicine; Visit Provider Internal Medicine Medical Oncology
DX: R18.8 Other ascites (principal); C18.9 Malignant neoplasm of colon, unspecified
CPT/HCPCS: 32555; 71046

== ENCOUNTER → 2018-08-15 10:30 | Outpatient (CLI) | payer MEDICARE, SELFPAY ==
[2018-08-15 10:09] VITALS: BMI 19.5
[2018-08-15 10:20] VITALS: BP 111/59; PULSE 92; RESP 20; TEMP 36.6; O2SAT 91
[2018-08-15 10:35] LABS: Basophils % 0.2 % (0.1-2.0); Eosinophils # 0.1 K/mm3 (0.0-0.4); Eosinophils % 1.1 % (0.1-12.0); Hematocrit 39.7 % (42.0-52.0); Hemoglobin 12.4 g/dL (14.1-18.0); Lymphocytes % 10.3 % (10-50); Mean Corpuscular HGB Conc 31.3 g/dL (31.8-35.4); Mean Corpuscular Hemoglobin 31.5 pg (27.0-31.2); Mean Corpuscular Volume 100.8 fl (80-94); Mean Platelet Volume 8.1 fl (7.4-10.4); Monocytes # 0.6 K/mm3 (0.1-1.0); Monocytes % 6.4 % (1.7-9.3); Neutrophils % 82.1 % (37.0-80.0); Platelet Count 378 K/mm3 (142-424); Red Blood Count 3.93 M/mm3 (4.60-6.20); Red Cell Distribution Width 17.8 % (11.5-17.5); White Blood Count 9.8 K/mm3 (4.8-10.8)
[2018-08-15 10:48] LABS: Alanine Aminotransferase 16 U/L (12-78); Albumin Level 2.3 gm/dL (3.4-5.0); Albumin/Globulin Ratio 0.5 (1.1-1.8); Alkaline Phosphatase 186 U/L (46-116); Anion Gap 7.9 mEq/L (5-15); Aspartate Amino Transferase 10 U/L (15-37); Bilirubin,Total 0.5 mg/dL (0.2-1.0); Blood Urea Nitrogen 22 mg/dL (7-18); Calcium 8.8 mg/dL (8.5-10.1); Carbon Dioxide 33 mmol/L (21.0-32.0); Chloride 104 mmol/L (98-107); Creatinine Clearance Estimated 44 mL/min (50-200); Creatinine,Serum 1.24 mg/dL (0.70-1.30); Estimated Glomerular Filt Rate 57 ml/min (>60); GFR (African American) 68 ML/MIN (>60); Globulin 4.5 gm/dl (1.3-3.2); Glucose 104 mg/dL (74-106); Potassium 3.9 mmoL/L (3.5-5.1); Sodium 141 mmol/L (136-145); Total Protein,Serum 6.8 gm/dL (6.4-8.2)
== END | disposition home or self-care (01) ==
LOC: INF 10:30
PROVIDERS: PCP Family Medicine; Visit Provider Internal Medicine Medical Oncology
DX: C18.9 Malignant neoplasm of colon, unspecified (principal)
CPT/HCPCS: 80053; 85025; 93005; J1642

== ENCOUNTER → 2018-08-22 09:54 | Outpatient (CLI) | payer OTHER, MEDICARE, SELFPAY ==
--- NOTE | 2018-08-22 | XR_ITS ---
XR chest 2V HISTORY: Follow-up thoracentesis ORDERING PHYSICIAN: Rachelle Vásquez MD PATIENT AGE: 78 years COMPARISON: 08/15/2018 FINDINGS: Status post left-sided thoracentesis with decrease in size of left pleural effusion. Small right effusion is noted with chronic interstitial changes. Left subclavian Mediport catheter remains in place. There is mild biapical pleural thickening. Patchy atelectasis or infiltrate noted in the right lower lobe. The right pleural effusion is not significant changed. IMPRESSION: Status post left-sided thoracentesis without evidence of pneumothorax with chronic changes/COPD and small right pleural effusion with mild right basilar atelectasis or infiltrate
--- NOTE | 2018-08-22 09:59 | US_ITS ---
US thoracentesis HISTORY: ITS.REASON: Pleural effusion, shortness of breath, lung cancer ORDERING PHYSICIAN: Rachelle Vásquez MD PATIENT AGE: 78 years Comparison: None PROCEDURE: Following obtaining informed consent and after appropriate Time out, under aseptic conditions and local anesthesia with 1% buffered lidocaine using sonographic guidance a 4 Par[place]ayan one-step catheter was inserted into the largest left-sided pleural effusion through the posterior axillary line Approximately 800 mL of blood-tinged fluid was drained. The patient tolerated the procedure well and left the radiology suite in stable condition. Post procedure radiograph showed no evidence of pneumothorax IMPRESSION: Successful sonographic guided left-sided thoracentesis without complication
[2018-08-22 13:04] VITALS: BMI 19.2
--- NOTE | 2018-08-22 13:05 | XR_ITS ---
XR chest 2V HISTORY: Follow-up thoracentesis ITS.REASON: s/p thoracentesis ORDERING PHYSICIAN: Rachelle Vásquez MD PATIENT AGE: 78 years COMPARISON: 08/22/2018 FINDINGS: The cardiomediastinal silhouette and pulmonary vascularity are within normal limits. COPD with chronic interstitial changes. Small bilateral pleural effusions. No evidence of pneumothorax. There is biapical pleural thickening. Left subclavian Mediport catheter remains in place IMPRESSION: No change, no evidence of pneumothorax.
== END ==
PROVIDERS: PCP Family Medicine; Visit Provider Internal Medicine Medical Oncology
DX: C18.9 Malignant neoplasm of colon, unspecified (principal); R06.02 Shortness of breath; R18.8 Other ascites
CPT/HCPCS: 32555; 71046

== ENCOUNTER → 2018-08-29 09:44 | Outpatient (CLI) | payer OTHER, MEDICARE, SELFPAY ==
--- NOTE | 2018-08-29 09:50 | US_ITS ---
US chest CLINICAL INDICATION: ITS.REASON: Pleural fluid ORDERING PHYSICIAN: Rachelle Vásquez MD PATIENT AGE: 78 years Comparison: None FINDINGS: Patient was scheduled for ultrasound-guided thoracentesis. Prethoracentesis imaging performed of the hemithoraces showed only small bilateral pleural effusions which appear somewhat loculated. It was therefore decided not to pursue with the thoracentesis. In the past patient has had a moderate amount of fluid which was visible by ultrasound. IMPRESSION: Small bilateral loculated pleural effusions
== END ==
PROVIDERS: PCP Family Medicine; Visit Provider Internal Medicine Medical Oncology
DX: C18.9 Malignant neoplasm of colon, unspecified (principal); R06.02 Shortness of breath
CPT/HCPCS: 76604

== ENCOUNTER → 2018-09-05 09:59 | Outpatient (CLI) | payer OTHER, MEDICARE, SELFPAY ==
--- NOTE | 2018-09-05 10:08 | US_ITS ---
US chest CLINICAL INDICATION: ITS.REASON: Pleural effusion ORDERING PHYSICIAN: Rachelle Vásquez MD PATIENT AGE: 78 years Comparison: None FINDINGS: Patient was scheduled for thoracentesis. Evaluation is performed of both posterior hemithoraces. There are small loculated bilateral pleural effusions however, no large nonloculated effusion apparent. Thoracentesis was therefore not performed. The findings do not appear significantly changed from one week earlier. IMPRESSION: Small bilateral loculated pleural effusions. Thoracentesis not performed
== END ==
PROVIDERS: PCP Family Medicine; Visit Provider Internal Medicine Medical Oncology
DX: R06.02 Shortness of breath (principal); C18.9 Malignant neoplasm of colon, unspecified
CPT/HCPCS: 76604